=== PATIENT | male | born 1960 | race Caucasian/White ===

== ENCOUNTER 2018-12-24 10:53 | Inpatient (IN) | payer OTHER ==
[2018-12-24] MEDS ORDERED: methylPREDNISolone SOD SUCCI 125 MG/2 ML VIAL IV STA (11:25)
[2018-12-24] MEDS ORDERED: ALBUTEROL NEBULIZED 2.5 MG/3 ML INHALATION STA (11:25)
--- NOTE | 2018-12-24 11:32 | ED ---
General Adult HPI - General Chief complaint: Shortness of Breath Stated complaint: sciatic nerve problem & spitting up blood Time Seen by Provider: 12/24/18 11:10 Source: patient, RN notes reviewed Mode of arrival: ambulatory Limitations: no limitations - History of Present Illness Initial comments: Chief complaint and history of present illness this is a 58-year-old male here for complaint of coughing up blood. States he had fever or chills and disc omfort starting 3 days ago. The patient was at [facility] for opiate addiction treatment. The patient states he is no rebound through withdrawals prior to getting to [facility] over 5 days ago. Patient states he has COPD. He has had hemoptysis in the past when he had pneumonia. Patient complains of chronic sciatic pain - Related Data Home Medications Medication Instructions Recorded Confirmed Albuterol Sulfate [Albuterol 1 - 2 puff INHALATION RT-Q4H PRN 12/24/18 12/24/18 Sulfate Hfa] Beclomethasone Dip 80 Mcg/Puff 2 puff INHALATION RT-DAILY 12/24/18 12/24/18 [Qvar 80 mcg] Buprenorphine HCl/Naloxone HCl 1 film SUBLINGUAL TID 12/24/18 12/24/18 [Suboxone 8 mg-2 mg Sl Film] Gabapentin [Neurontin] 300 mg PO TID 12/24/18 12/24/18 Allergies Allergy/AdvReac Type Severity Reaction Status Date / Time morphine Allergy Itching Verified 12/24/18 12:23 Penicillins Allergy Dyspnea Verified 12/24/18 12:23 Review of Systems ROS Statement: Those systems with pertinent positive or pertinent negative responses have been documented in the HPI. Review of systems. No headache or visual acuity changes denies any chest pain but he does have frequent coughing complains of COPD type symptoms with shortness of breath. States he's noticed blood in the sputum. Complains of fever and chills 3 days ago. Denies nausea vomiting or abdominal pain. Has chronic sciatic pain. Denies any neuro deficits. All systems reviewed. Past medical problems significant for COPD, chronic back pain. The patient's past drug history includes heroin IV and 2017, crack cocaine, opiate abuse. Patient also is a heavy smoker. The patient's surgeries include right knee drained. Patient's family history significant for cancer of the lymph nodes and lung. The patient has ALLERGIES to morphine which causes itchiness. Penicillin causes his throat to close. Patient has had Toradol with moderate effect in the past. Denies any ALLERGIES or difficulties when receiving Renetta dol. Patient is a smoker strongly encouraged to stop for obvious reasons. Denies alcohol use. ROS Other: All systems not noted in ROS Statement are negative. Past Medical History Additional Past Medical History / Comment(s): herniated disks History of Any Multi-Drug Resistant Organisms: None Reported Past Surgical History: Orthopedic Surgery Past Psychological History: No Psychological Hx Reported Smoking Status: Current every day smoker Past Drug Use History: Opiates General Exam - General Exam Comments Initial Comments: General: The patient is awake and alert, has come the emergency room because of hemoptysis, short of breath, chronic sciatic pain. The patient's vital signs are temperature 98.2 pulse 86 respiratory rate 18 pulse ox 97% on room air blood pressure 98/42 Eye: Pupils are equal, round and reactive to light, extra-ocular movements are intact; there is normal conjunctiva bilaterally. No signs of icterus. Ears, nose, mouth and throat: There are moist mucous membranes and no oral lesions. Neck: The neck is supple, there is no tenderness, no anterior cervical lymphadenopathy. Cardiovascular: There is a regular rate and rhythm. No murmur, rub or gallop is appreciated. Respiratory: Bronchovesicular breath sounds, faint wheezing, crepitant rales right base. Gastrointestinal: Denies nausea vomiting or abdominal pain. Normal appetite Back: Chronic low back pain chronic sciatica. Musculoskeletal: Normal ROM, no tenderness, bilateral sciatic discomfort Neurological: CN II-XII intact, There are no obvious motor or sensory deficits. Coordination appears grossly intact. Speech is normal. Denying any neuro deficits chronic sciatic pain Skin: Skin is warm and dry and no rashes or lesions are noted. Psychiatric: Cooperative, denies depression Limitations: no limitations Course Vital Signs 12/24/18 12/24/18 12/24/18 11:02 11:51 12:57 Temperature 98.2 F Pulse Rate 66 72 Respiratory 18 20 Rate Blood Pressure 98/62 O2 Sat by Pulse 97 Oximetry 12/24/18 13:07 Temperature Pulse Rate 68 Respiratory Rate Blood Pressure O2 Sat by Pulse Oximetry EKG Findings - EKG Comments: EKG Findings:: EKG was done and reviewed at 1158 showing normal sinus rhythm with sinus arrhythmia. No acute ST elevation or ectopy no ischemic changes. Rate 81 OR interval is 128 QRS 74 QT [address] Emerson Medical Decision Making - Medical Decision Making Medical decision making; a 58-year-old male here because of coughing up some blood with a COPD. States he thinks he may have pneumonia. He is at [facility] for management of opiate addiction. The patient was in emergency room he requested pain medication he was given IV Toradol which she has had in the past. He also requested Suboxone which is not on formulary. The patient's labs show white count of 8.8 hemoglobin 13 hematocrit of 40 with an INR 0.9. His potassium is 5.1 BUN 28 creatinine 0.93 with a GFR of 90. Glucose 94. Chest x-ray was done and reviewed by radiologist his impression is there is no focal airspace opacity, pleural effusion or pneumothorax seen. Cardiac silhouette size within normal limits. Interstitial minutes increased. Prominent lung winds and flattening the hemidiaphragm suggesting underlying COPD. The osseous structures are intact. Impression in no acute cardiopulmon bruce process. Suspect interstitial lung disease. As read by Dr. Zafar The patient be admitted for COPD, hemoptysis. Patient be admitted to on-call hospitalist Dr. Maldonado - Lab Data Result diagrams: 12/24/18 11:48 12/24/18 11:48 Lab Results 12/24/18 12/24/18 12/24/18 Range/Units 11:48 11:48 11:48 WBC 8.8 (3.8-10.6) k/uL RBC 4.19 L (4.30-5.90) m/uL Hgb 13.1 (13.0-17.5) gm/dL Hct 40.0 (39.0-53.0) % MCV 95.5 (80.0-100.0) fL MCH 31.4 (25.0-35.0) pg MCHC 32.8 (31.0-37.0) g/dL RDW 12.0 (11.5-15.5) % Plt Count 265 (150-450) k/uL Neutrophils % 70 % Lymphocytes % 18 % Monocytes % 5 % Eosinophils % 4 % Basophils % 0 % Neutrophils # 6.2 (1.3-7.7) k/uL Lymphocytes # 1.6 (1.0-4.8) k/uL Monocytes # 0.4 (0-1.0) k/uL Eosinophils # 0.4 (0-0.7) k/uL Basophils # 0.0 (0-0.2) k/uL PT (9.0-12.0) sec INR (<1.2) APTT (22.0-30.0) sec Sodium 140 (137-145) mmol/L Potassium 5.1 (3.5-5.1) mmol/L Chloride 105 (98-107) mmol/L Carbon Dioxide 28 (22-30) mmol/L Anion Gap 7 mmol/L BUN 28 H (9-20) mg/dL Creatinine 0.93 (0.66-1.25) mg/dL Est GFR (CKD-EPI)AfAm >90 (>60 ml/min/1.73 sqM) Est GFR (CKD-EPI)NonAf 90 (>60 ml/min/1.73 sqM) Glucose 94 (74-99) mg/dL Calcium 9.2 (8.4-10.2) mg/dL Total Bilirubin 0.3 (0.2-1.3) mg/dL AST 28 (17-59) U/L ALT 24 (21-72) U/L Alkaline Phosphatase 54 (38-126) U/L Troponin I (0.000-0.034) ng/mL NT-Pro-B Natriuret Pep 138 pg/mL Total Protein 7.0 (6.3-8.2) g/dL Albumin 4.1 (3.5-5.0) g/dL 12/24/18 12/24/18 Range/Units 11:48 11:48 WBC (3.8-10.6) k/uL RBC (4.30-5.90) m/uL Hgb (13.0-17.5) gm/dL Hct (39.0-53.0) % MCV (80.0-100.0) fL MCH (25.0-35.0) pg MCHC (31.0-37.0) g/dL RDW (11.5-15.5) % Plt Count (150-450) k/uL Neutrophils % % Lymphocytes % % Monocytes % % Eosinophils % % Basophils % % Neutrophils # (1.3-7.7) k/uL Lymphocytes # (1.0-4.8) k/uL Monocytes # (0-1.0) k/uL Eosinophils # (0-0.7) k/uL Basophils # (0-0.2) k/uL PT 9.5 (9.0-12.0) sec INR 0.9 (<1.2) APTT 23.7 (22.0-30.0) sec Sodium (137-145) mmol/L Potassium (3.5-5.1) mmol/L Chloride (98-107) mmol/L Carbon Dioxide (22-30) mmol/L Anion Gap mmol/L BUN (9-20) mg/dL Creatinine (0.66-1.25) mg/dL Est GFR (CKD-EPI)AfAm (>60 ml/min/1.73 sqM) Est GFR (CKD-EPI)NonAf (>60 ml/min/1.73 sqM) Glucose (74-99) mg/dL Calcium (8.4-10.2) mg/dL Total Bilirubin (0.2-1.3) mg/dL AST (17-59) U/L ALT (21-72) U/L Alkaline Phosphatase (38-126) U/L Troponin I <0.012 (0.000-0.034) ng/mL NT-Pro-B Natriuret Pep pg/mL Total Protein (6.3-8.2) g/dL Albumin (3.5-5.0) g/dL Disposition Clinical Impression: COPD exacerbation, Cough with hemoptysis, Chronic pain Disposition: ADMITTED IP TO THIS HOSP Condition: Fair Is patient prescribed a controlled substance at d/c from ED?: No Referrals: None,Stated [Primary Care Provider] - 1-2 days
[2018-12-24] MEDS ORDERED: KETOROLAC 30 MG/ML 1 ML VIAL IVP STA (11:34)
[2018-12-24 12:05] LABS: Basophils % (A) 0 %; Eosinophils # (A) 0.4 k/uL (0-0.7); Eosinophils % (A) 4 %; HGB 13.1 gm/dL (13.0-17.5); Lymphocytes # (A) 1.6 k/uL (1.0-4.8); Lymphocytes % (A) 18 %; MCH 31.4 pg (25.0-35.0); MCHC 32.8 g/dL (31.0-37.0); MCV 95.5 fL (80.0-100.0); Mean Platelet Volume 6.8; Monocytes # (A) 0.4 k/uL (0-1.0); Monocytes % (A) 5 %; Neutrophils # (A) 6.2 k/uL (1.3-7.7); Neutrophils % (A) 70 %; Platelet Count 265 k/uL (150-450); RBC 4.19 m/uL (4.30-5.90); WBC 8.8 k/uL (3.8-10.6)
[2018-12-24 12:18] LABS: INR 0.9 (<1.2); Partial Thromboplastin Time 23.7 sec (22.0-30.0); Prothrombin Time 9.5 sec (9.0-12.0)
--- NOTE | 2018-12-24 12:21 | XR ---
EXAMINATION TYPE: XR chest 2V DATE OF EXAM: 12/24/2018 COMPARISON: NONE HISTORY: Difficulty breathing, hemostasis TECHNIQUE: Frontal and lateral views of the chest are obtained. FINDINGS: There is no focal air space opacity, pleural effusion, or pneumothorax seen. The cardiac silhouette size is within normal limits. Interstitium is increased. Prominent lung lines and flatteni ng the hemidiaphragms suggests underlying COPD. The osseous structures are intact. IMPRESSION: No acute cardiopulmonary process. Suspect interstitial lung disease.
[2018-12-24 12:24] LABS: ALT 24 U/L (21-72); AST 28 U/L (17-59); African American GFR (CKD) >90 (>60 ml/min/1.73 sqM); Albumin 4.1 g/dL (3.5-5.0); Alkaline Phosphatase 54 U/L (38-126); Anion Gap 7 mmol/L; Blood Urea Nitrogen 28 mg/dL (9-20); Calcium 9.2 mg/dL (8.4-10.2); Carbon Dioxide 28 mmol/L (22-30); Chloride 105 mmol/L (98-107); Glucose 94 mg/dL (74-99); Potassium 5.1 mmol/L (3.5-5.1); Sodium 140 mmol/L (137-145); Total Bilirubin 0.3 mg/dL (0.2-1.3)
[2018-12-24] MEDS ORDERED: NALOXONE 0.4 MG/ML 1 ML VIAL IV PRN (13:43)
[2018-12-24] MEDS ORDERED: IBUPROFEN 400 MG TAB PO PRN (13:43)
[2018-12-24] MEDS ORDERED: ALBUTEROL NEBULIZED 2.5 MG/3 ML INHALATION PRN (13:48)
[2018-12-24] MEDS: AZITHROMYCIN 500 MG in SODIUM CHLORIDE 0.9% 250 ML IVPB SCH (15:15)
--- NOTE | 2018-12-24 16:06 | P.CNPUL ---
History of Present Illness Consult date: 12/24/18 Reason for consult: dyspnea Chief complaint: Shortness of breath and hemoptysis History of present illness: 58-year-old male with extensive history of smoking and nicotine use [place] a patient from [place] has been in drug rehab program, he has been short of breath coughing and congested for last 2-3 week today he started coughing blood which was in the form of dark red started today denies any chest pain, he has previous episode of hemoptysis in the past his x-ray showing prominent interstitium otherwise unremarkable, he had fever or chills and discomfort starting 3 days ago. The patient was at [facility] for opiate addiction treatment. The patient states he is no rebound through withdrawals prior to getting to [facility] over 5 days ago. Patient states he has COPD. He has had hemoptysis in the past when he had pneumonia. Patient complains of chronic sciatic pain Review of Systems This complaining of chronic severe radicular leg pain in the right lower extremity All systems: negative Past Medical History Additional Past Medical History / Comment(s): herniated disks History of Any Multi-Drug Resistant Organisms: None Reported Past Surgical History: Orthopedic Surgery Past Psychological History: No Psychological Hx Reported Smoking Status: Current every day smoker Past Drug Use History: Opiates Medications and Allergies Home Medications Medication Instructions Recorded Confirmed Type Albuterol Sulfate [Albuterol 1 - 2 puff INHALATION RT-Q4H PRN 12/24/18 12/24/18 History Sulfate Hfa] Beclomethasone Dip 80 Mcg/Puff 2 puff INHALATION RT-DAILY 12/24/18 12/24/18 History [Qvar 80 mcg] Buprenorphine HCl/Naloxone HCl 1 film SUBLINGUAL TID 12/24/18 12/24/18 History [Suboxone 8 mg-2 mg Sl Film] Gabapentin [Neurontin] 300 mg PO TID 12/24/18 12/24/18 History Allergies Allergy/AdvReac Type Severity Reaction Status Date / Time morphine Allergy Itching Verified 12/24/18 12:23 Penicillins Allergy Dyspnea Verified 12/24/18 12:23 Physical Exam Vitals: Vital Signs Temp Pulse Resp BP Pulse Ox 12/24/18 15:24 72 18 133/80 97 12/24/18 13:53 64 18 111/68 95 12/24/18 13:07 68 12/24/18 12:57 72 06/28/19 11:51 20 12/24/18 11:02 98.2 F 66 18 98/62 97 Intake and Output 12/24/18 12/24/18 12/24/18 06:59 14:59 22:59 Other: Weight 77.111 kg - Constitutional General appearance: average body habitus, cooperative, disheveled, mild distress - EENT Eyes: EOMI, PERRLA, poor dentition, normal appearance ENT: hearing grossly normal, normal oropharynx Ears: bilateral: normal - Neck Neck: normal ROM Carotids: bilateral: upstroke normal Thyroid: bilateral: normal size - Respiratory Respiratory: bilateral: rhonchi, wheezing (An expiratory), negative: CTA, diminished, dullness, rales, prolonged expiration, prolonged inspiration - Cardiovascular Heart sounds: normal: S1, S2 - Gastrointestinal General gastrointestinal: normal bowel sounds, soft - Integumentary Integumentary: normal turgor - Neurologic Neurologic: CNII-XII intact - Musculoskeletal Musculoskeletal: gait normal, generalized weakness, strength equal bilaterally - Psychiatric Psychiatric: A&O x's 3, appropriate affect, intact judgment & insight Results - Laboratory Findings CBC and BMP: 12/24/18 11:48 12/24/18 11:48 PT/INR, D-dimer PT 9.5 sec (9.0-12.0) 12/24/18 11:48 INR 0.9 (<1.2) 12/24/18 11:48 Abnormal lab findings: Abnormal Labs 12/24/18 12/24/18 11:48 11:48 RBC 4.19 L BUN 28 H - Diagnostic Findings Chest x-ray: report reviewed, image reviewed (Findings as noted above) Assessment and Plan Assessment: Hemoptysis, suspect due to airway inflammation COPD exacerbation Tracheobronchitis Severe chronic leg pain History of opiate addiction Plan: Breathing treatments Antibiotics IV steroids Obtain computed tomography scan of the chest Further recommendations pending plan of care as per clinical response of patient Time with Patient: Greater than 30
[2018-12-24] MEDS: GABAPENTIN 300 MG CAP PO SCH ×2 (17:37→21:51)
[2018-12-24] MEDS: 0.9% NACL WITH KCL 20 MEQ/L 1,000 ML IV SCH (17:38)
[2018-12-24] MEDS: BUDESONIDE 0.5 MG/2 ML NEBU INHALATION SCH (20:45)
[2018-12-24] MEDS: IPRATROPIUM-ALBUTEROL 3 ML NEB INHALATION SCH (20:46)
[2018-12-24] MEDS: methylPREDNISolone SOD SUCCI 40 MG/ML 1 ML VIAL IV SCH (21:55)
--- NOTE | 2018-12-24 23:07 | CT ---
EXAMINATION TYPE: CT chest wo con DATE OF EXAM: 12/24/2018 COMPARISON: CXR 12/24/2018 HISTORY: Hemoptysis CT DLP: 368.1 mGycm. Automated Exposure Control for Dose Reduction was Utilized. TECHNIQUE: CT scan of the thorax is performed without IV contrast. FINDINGS: AIRWAYS: Unremarkable. LUNGS: There is hyperinflation and a coarse reticular pattern in the bilateral periphery of the upper , mid, and lower lung zones, associated with thickening of the intralobular septa, consistent with mi ld-moderately prominent interstitial lung disease. There is a 4 mm rounded groundglass nodule in the anterior segment right upper lobe on axial image 26 of 73. PLEURAL SPACES: Negative. MEDIASTINUM: Lack of IV contrast is noted to limit evaluation for mediastinal and especially hilar ad enopathy. There are no definitive greater than 1 cm hilar or mediastinal lymph nodes. No cardiomega ly or pericardial effusion is seen. However, prominent left and right coronary calcifications are not ed. OTHER: No additional significant abnormality is seen. IMPRESSION: 1) Interstitial lung disease. 2) 4 mm right upper lobe pulmonary nodule. 3) Prominent left and right coronary calcifications.
--- NOTE | 2018-12-24 23:42 | P.HPIM ---
History of Present Illness H&P Date: 12/24/18 Chief Complaint: Shortness of breath Patient is a 58-year-old male with a known history of COPD, history of substance abuse currently on Suboxone, chronic back pain and nicotine addiction came to ER with the complaints of coughing of blood. Patient noticed blood in sputum this morning. Streaks of blood mainly. Patient has been having worsening shortness of breath along with cough and sputum production for the past 2 days. Patient says that she did have fevers/chills at home. Currently patient was at [facility] for opiate addiction treatment. Patient says that his been having seen by and cough and is hurting his abdomen muscles and right sciatic nerve pain. Patient was wheezing with difficulty in breathing on admission. Chest x-ray showed no acute cardiopulmonary process. Suspect interstitial lung disease. Review of Systems Constitutional: Patient denies any fever or chills . No generalized weakness or weight loss. Abdomen: Patient denied nausea vomiting and diarrhea and abdominal pain. Cardiovascular: Patient denies any chest pain or short of breath no palpitations. Respiratory: Cough with sputum production and shortness of breath Neurologic: Patient denied any numbness or tingling headache. Musculoskeletal: Patient denies any complaints of joint swelling or deformity. Skin: Negative Psychiatric: Negative Endocrine: No heat or cold intolerance. No recent weight gain. Genitourinary: No dysuria or hematuria. All other 14 point ROS negative except the above Past Medical History Additional Past Medical History / Comment(s): herniated disks History of Any Multi-Drug Resistant Organisms: None Reported Past Surgical History: Orthopedic Surgery Past Psychological History: No Psychological Hx Reported Smoking Status: Current every day smoker Past Drug Use History: Opiates - Past Family History Father Family Medical History: Myocardial Infarction ([place]) Mother Additional Family Medical History / Comment(s): had colon resection/copd suspected PE ( from) Medications and Allergies Home Medications Medication Instructions Recorded Confirmed Type Albuterol Sulfate [Albuterol 1 - 2 puff INHALATION RT-Q4H PRN 12/24/18 12/24/18 History Sulfate Hfa] Beclomethasone Dip 80 Mcg/Puff 2 puff INHALATION RT-DAILY 12/24/18 12/24/18 History [Qvar 80 mcg] Buprenorphine HCl/Naloxone HCl 1 film SUBLINGUAL TID 12/24/18 12/24/18 History [Suboxone 8 mg-2 mg Sl Film] Gabapentin [Neurontin] 300 mg PO TID 12/24/18 12/24/18 History Allergies Allergy/AdvReac Type Severity Reaction Status Date / Time morphine Allergy Itching Verified 12/24/18 12:23 Penicillins Allergy Dyspnea Verified 12/24/18 12:23 Physical Exam Vitals: Vital Signs Temp Pulse Resp BP Pulse Ox 12/24/18 15:24 72 18 133/80 97 12/24/18 13:53 64 18 111/68 95 12/24/18 13:07 68 12/24/18 12:57 72 12/24/18 11:51 20 12/24/18 11:02 98.2 F 66 18 98/62 97 Intake and Output 12/24/18 12/24/18 12/24/18 06:59 14:59 22:59 Other: Weight 77.111 kg PHYSICAL EXAMINATION: Patient is lying in the bed comfortably, no acute distress, awake alert and oriented.. HEENT: Normocephalic. Neck is supple. Pupils reactive. Nostrils clear. Oral cavity is moist. Ears reveal no drainage. Neck reveals no JVD, carotid bruits, or thyromegaly. CHEST EXAMINATION: Trachea is central. Symmetrical expansion. bilateral diffuse wheezing and rhonchi. CARDIAC: Normal S1, S2 with no gallops. No murmurs ABDOMEN: Soft. Bowel sounds normal. No organomegaly. No abdominal bruits. Extremities: reveal no edema. No clubbing or cyanosis Neurologically awake, alert, oriented x3 with well-coordinated movements. No focal deficits noted Skin: No rash or skin lesions. Psychiatric: Coperative. Nonsuicidal Musculoskeletal: No joint swelling or deformity. Normal range of motion. Results CBC & Chem 7: 12/24/18 11:48 12/24/18 11:48 Labs: Abnormal Lab Results - Last 24 Hours (Table) 12/24/18 12/24/18 Range/Units 11:48 11:48 RBC 4.19 L (4.30-5.90) m/uL BUN 28 H (9-20) mg/dL Thrombosis Risk Factor Assmnt - DVT/VTE Prophylaxis DVT/VTE Prophylaxis: Pharmacologic Prophylaxis ordered Assessment and Plan Assessment: Hemoptysis likely due to acute bronchitis with mucosal inflammation Acute COPD exacerbation. Due to purulent tracheobronchitis. Nicotine addiction Opiate addiction currently on treatment with subaxone at [facility]. DVT prophylaxis Plan: Patient will be continued on DuoNeb's, methylprednisolone and oxygen therapy as needed. Continue with antibiotics in the form of azithromycin. Monitor H&H. Pulmonary was consulted and CT chest was ordered to evaluate for hemoptysis and possible pulmonary fibrosis. Continue to follow closely and further recommendations based on the clinical course. Smoking cessation has been counseled extensively. Time with Patient: Greater than 30
[2018-12-25] MEDS: KETOROLAC 30 MG/ML 1 ML VIAL IVP PRN ×4 (01:19→20:33)
[2018-12-25] MEDS: GABAPENTIN 300 MG CAP PO SCH ×3 (06:28→20:33)
[2018-12-25] MEDS: AZITHROMYCIN 500 MG in SODIUM CHLORIDE 0.9% 250 ML IVPB SCH (07:14)
[2018-12-25] MEDS: methylPREDNISolone SOD SUCCI 40 MG/ML 1 ML VIAL IV SCH ×2 (07:14→20:33)
[2018-12-25] MEDS: BUDESONIDE 0.5 MG/2 ML NEBU INHALATION SCH ×2 (07:35→20:27)
[2018-12-25] MEDS: IPRATROPIUM-ALBUTEROL 3 ML NEB INHALATION SCH ×4 (07:35→20:27)
[2018-12-25] MEDS: NICOTINE 14MG/24HR PATCH TRANSDERM SCH (07:57)
[2018-12-25 08:50] LABS: Basophils % (A) 0 %; Eosinophils % (A) 0 %; HCT 39.3 % (39.0-53.0); HGB 12.4 gm/dL (13.0-17.5); Lymphocytes # (A) 1.3 k/uL (1.0-4.8); Lymphocytes % (A) 8 %; MCH 30.6 pg (25.0-35.0); MCHC 31.6 g/dL (31.0-37.0); Mean Platelet Volume 7.1; Monocytes # (A) 0.6 k/uL (0-1.0); Monocytes % (A) 3 %; Neutrophils # (A) 15.2 k/uL (1.3-7.7); Neutrophils % (A) 88 %; Platelet Count 268 k/uL (150-450); RBC 4.05 m/uL (4.30-5.90); RDW 11.9 % (11.5-15.5); WBC 17.2 k/uL (3.8-10.6)
[2018-12-25] MEDS: ACETAMINOPHEN TAB 325 MG TAB PO PRN (10:10)
[2018-12-25] MEDS: FLUTICASONE 110 MCG INHALER INHALATION SCH ×2 (11:45→20:27)
[2018-12-25] MEDS: 0.9% NACL WITH KCL 20 MEQ/L 1,000 ML IV SCH (12:30)
[2018-12-25] MEDS: LORazepam 2 MG/ML INJ IV PRN ×2 (13:31→18:54)
[2018-12-25 14:28] VITALS: BMI 25.1
--- NOTE | 2018-12-25 21:01 | P.PN ---
Subjective Progress Note Date: 12/25/18 Principal diagnosis: Hemoptysis, COPD exacerbation, tracheobronchitis, chronic leg pain, history of opiate addiction, 12/25/2018, patient seen eval reexamined during the rounds has received Ativan due to agitated behavior patient is more calm and sleeping woke up remains composed I've discussed with RN there is no evidence of hemoptysis seen patient also denies hemoptysis now he is not coughing any phlegm however he still feel congested, computed tomography scan reviewed with finding as noted below 58-year-old male with extensive history of smoking and nicotine use [place] a patient from [place] has been in drug rehab program, he has been short of breath coughing and congested for last 2-3 week today he started coughing blood which was in the form of dark red started today denies any chest pain, he has previous episode of hemoptysis in the past his x-ray showing prominent interstitium otherwise unremarkable, he had fever or chills and discomfort starting 3 days ago. The patient was at [facility] for opiate addiction treatment. The patient states he is no rebound through withdrawals prior to getting to [facility] over 5 days ago. Patient states he has COPD. He has had hemoptysis in the past when he had pneumonia. Patient complains of chronic sciatic pain Objective - Vital Signs Vital signs: Vital Signs Temp 97.9 F 12/25/18 12:31 Pulse 66 12/25/18 20:41 Resp 16 12/25/18 12:31 BP 111/67 12/25/18 12:31 Pulse Ox 96 12/25/18 16:00 Intake & Output 12/25/18 12/25/18 12/26/18 06:59 18:59 06:59 Intake Total 1250 540 Output Total 0 Balance 1250 540 Weight 77.111 kg Intake: Oral 1250 540 Output: Stool 0 Other: Voiding Method Toilet # Voids 1 2 - Exam - Constitutional General appearance: average body habitus, cooperative, disheveled, mild distress - EENT Eyes: EOMI, PERRLA, poor dentition, normal appearance ENT: hearing grossly normal, normal oropharynx Ears: bilateral: normal - Neck Neck: normal ROM Carotids: bilateral: upstroke normal Thyroid: bilateral: normal size - Respiratory Respiratory: bilateral: rhonchi, wheezing (An expiratory), negative: CTA, diminished, dullness, rales, prolonged expiration, prolonged inspiration - Cardiovascular Heart sounds: normal: S1, S2 - Gastrointestinal General gastrointestinal: normal bowel sounds, soft - Integumentary Integumentary: normal turgor - Neurologic Neurologic: CNII-XII intact - Musculoskeletal Musculoskeletal: gait normal, generalized weakness, strength equal bilaterally - Psychiatric Psychiatric: A&O x's 3, appropriate affect, intact judgment & insight - Labs CBC & Chem 7: 12/25/18 08:08 12/24/18 11:48 Labs: Abnormal Lab Results - Last 24 Hours (Table) 12/25/18 Range/Units 08:08 WBC 17.2 H (3.8-10.6) k/uL RBC 4.05 L (4.30-5.90) m/uL Hgb 12.4 L (13.0-17.5) gm/dL Neutrophils # 15.2 H (1.3-7.7) k/uL Microbiology - Last 24 Hours (Table) 12/24/18 11:48 Blood Culture - Preliminary Blood No Growth after 24 hours Assessment and Plan Assessment: Hemoptysis, suspect due to airway inflammation, improved now Right upper lobe 4 millimeter pulmonary nodule Interstitial lung disease overall mild likely IPF as it is involving the periphery of the lung with some early reticulation COPD exacerbation Tracheobronchitis Severe chronic leg pain History of opiate addiction Plan: Breathing treatments Antibiotics IV steroids Obtain computed tomography scan of the chest Further recommendations pending plan of care as per clinical response of patient Evaluation of lung nodule and interstitial lung disease as outpatient Time with Patient: Greater than 30
[2018-12-26] MEDS: KETOROLAC 30 MG/ML 1 ML VIAL IVP PRN ×3 (03:43→22:35)
[2018-12-26] MEDS: LORazepam 2 MG/ML INJ IV PRN ×3 (03:49→19:07)
[2018-12-26] MEDS: 0.9% NACL WITH KCL 20 MEQ/L 1,000 ML IV SCH (05:00)
[2018-12-26] MEDS: AZITHROMYCIN 500 MG in SODIUM CHLORIDE 0.9% 250 ML IVPB SCH (07:47)
[2018-12-26] MEDS: NICOTINE 14MG/24HR PATCH TRANSDERM SCH (07:47)
[2018-12-26] MEDS: GABAPENTIN 300 MG CAP PO SCH ×3 (07:47→21:33)
[2018-12-26] MEDS: methylPREDNISolone SOD SUCCI 40 MG/ML 1 ML VIAL IV SCH ×2 (07:47→21:34)
[2018-12-26] MEDS: FLUTICASONE 110 MCG INHALER INHALATION SCH ×2 (09:03→20:53)
[2018-12-26] MEDS: IPRATROPIUM-ALBUTEROL 3 ML NEB INHALATION SCH ×4 (09:03→20:48)
[2018-12-26] MEDS: BUDESONIDE 0.5 MG/2 ML NEBU INHALATION SCH ×2 (09:21→20:48)
--- NOTE | 2018-12-26 15:10 | P.PN ---
Subjective Progress Note Date: 12/26/18 Principal diagnosis: Hemoptysis, COPD exacerbation, tracheobronchitis, chronic leg pain, history of opiate addiction, 12/26/2018, patient seen eval reexamined during the rounds still have ongoing cough congestion shortness of breath but severity has improved patient claims that he has coughed some blood, however RN not able to confirm it I have also patient to save if hemoptysis recurs again and show it to RN, in the meantime continue breathing treatments steroids and antibiotics follow clinical course closely 12/25/2018, patient seen eval reexamined during the rounds has received Ativan due to agitated behavior patient is more calm and sleeping woke up remains composed I've discussed with RN there is no evidence of hemoptysis seen patient also denies hemoptysis now he is not coughing any phlegm however he still feel congested, computed tomography scan reviewed with finding as noted below 58-year-old male with extensive history of smoking and nicotine use [place] a patient from [place] has been in drug rehab program, he has been short of breath coughing and congested for last 2-3 week today he started coughing blood which was in the form of dark red started today denies any chest pain, he has previous episode of hemoptysis in the past his x-ray showing prominent interstitium otherwise unremarkable, he had fever or chills and discomfort starting 3 days ago. The patient was at [facility] for opiate addiction treatment. The patient states he is no rebound through withdrawals prior to getting to [facility] over 5 days ago. Patient states he has COPD. He has had hemoptysis in the past when he had pneumonia. Patient complains of chronic sciatic pain Objective - Vital Signs Vital signs: Vital Signs Temp 98.0 F 12/26/18 13:18 Pulse 66 12/26/18 13:58 Resp 16 12/26/18 13:18 BP 118/60 12/26/18 13:18 Pulse Ox 96 12/26/18 13:18 Intake & Output 12/25/18 12/26/18 12/26/18 18:59 06:59 18:59 Intake Total 540 750 Output Total 0 Balance 540 750 Weight 77.111 kg Intake: Oral 540 750 Output: Stool 0 Other: Voiding Method Toilet Toilet Toilet # Voids 2 1 3 - Exam - Constitutional General appearance: average body habitus, cooperative, disheveled, mild distress - EENT Eyes: EOMI, PERRLA, poor dentition, normal appearance ENT: hearing grossly normal, normal oropharynx Ears: bilateral: normal - Neck Neck: normal ROM Carotids: bilateral: upstroke normal Thyroid: bilateral: normal size - Respiratory Respiratory: bilateral: rhonchi, wheezing (An expiratory), negative: CTA, diminished, dullness, rales, prolonged expiration, prolonged inspiration - Cardiovascular Heart sounds: normal: S1, S2 - Gastrointestinal General gastrointestinal: normal bowel sounds, soft - Integumentary Integumentary: normal turgor - Neurologic Neurologic: CNII-XII intact - Musculoskeletal Musculoskeletal: gait normal, generalized weakness, strength equal bilaterally - Psychiatric Psychiatric: A&O x's 3, appropriate affect, intact judgment & insight - Labs CBC & Chem 7: 12/25/18 08:08 12/24/18 11:48 Labs: Microbiology - Last 24 Hours (Table) 12/24/18 11:48 Blood Culture - Preliminary Blood No Growth after 48 hours Assessment and Plan Assessment: Hemoptysis, suspect due to airway inflammation, improved now Right upper lobe 4 millimeter pulmonary nodule Interstitial lung disease overall mild likely IPF as it is involving the periphery of the lung with some early reticulation COPD exacerbation Tracheobronchitis Severe chronic leg pain History of opiate addiction Plan: Breathing treatments Antibiotics IV steroids Reviewed computed tomography scan of the chest Further recommendations pending plan of care as per clinical response of patient Evaluation of lung nodule and interstitial lung disease as outpatient Time with Patient: Greater than 30
[2018-12-26 16:57] LABS: Glucose,Whole Blood 225 mg/dL (75-99)
[2018-12-26] MEDS: INSULIN ASPART (NovoLOG) 100 UNIT/ML VIAL SQ SCH ×2 (17:29→21:34)
[2018-12-26] MEDS: ACETAMINOPHEN TAB 325 MG TAB PO PRN (19:51)
[2018-12-26 21:18] LABS: Glucose,Whole Blood 182 mg/dL (75-99)
[2018-12-26 23:11] VITALS: RESP 18
--- NOTE | 2018-12-27 00:35 | P.PN ---
Subjective Progress Note Date: 12/25/18 Principal diagnosis: Acute COPD exacerbation Subaxone withdrawal symptoms Patient is a 58-year-old male with a known history of COPD, history of substance abuse currently on Suboxone, chronic back pain and nicotine addiction came to ER with the complaints of coughing of blood. Patient noticed blood in sputum this morning. Streaks of blood mainly. Patient has been having worsening shortness of breath along with cough and sputum production for the past 2 days. Patient says that she did have fevers/chills at home. Currently patient was at [facility] for opiate addiction treatment. Patient says that his been having seen by and cough and is hurting his abdomen muscles and right sciatic nerve pain. Patient was wheezing with difficulty in breathing on admission. Chest x-ray showed no acute cardiopulmonary process. Suspect interstitial lung disease. 12 25 2017 Patient is lying in the bed comfortably. Patient is drowsy. Still wheezing. No fever no chills. CT chest showed interstitial lung disease. 4mm right upper lobe lung nodule . Prominent right and left coronary calcifications No chest pain or worsening shortness of breath. No fever no chills. Current medications reviewed. Objective - Vital Signs Vital signs: Vital Signs Temp 97.9 F 12/25/18 12:31 Pulse 66 12/25/18 20:41 Resp 16 12/25/18 12:31 BP 111/67 12/25/18 12:31 Pulse Ox 96 12/25/18 16:00 Intake & Output 12/25/18 12/25/18 12/26/18 06:59 18:59 06:59 Intake Total 1250 540 Output Total 0 0 Balance 1250 540 0 Weight 77.111 kg Intake: Oral 1250 540 Output: Stool 0 0 Other: Voiding Method Toilet Toilet # Voids 1 2 - Exam PHYSICAL EXAMINATION: Patient is lying in the bed comfortably, no acute distress, awake alert and oriented. Patient is drowsy.. HEENT: Normocephalic. Neck is supple. Pupils reactive. Nostrils clear. Oral cavity is moist. Ears reveal no drainage. Neck reveals no JVD, carotid bruits, or thyromegaly. CHEST EXAMINATION: Trachea is central. Symmetrical expansion. Diffuse wheezing and scattered rhonchi.. CARDIAC: Normal S1, S2 with no gallops. No murmurs ABDOMEN: Soft. Bowel sounds normal. No organomegaly. No abdominal bruits. Extremities: reveal no edema. No clubbing or cyanosis Neurologically awake, alert, oriented x3 with well-coordinated movements. No focal deficits noted Skin: No rash or skin lesions. Psychiatric: Coperative. Nonsuicidal Musculoskeletal: No joint swelling or deformity. Normal range of motion. - Labs CBC & Chem 7: 12/25/18 08:08 12/24/18 11:48 Labs: Abnormal Lab Results - Last 24 Hours (Table) 12/25/18 Range/Units 08:08 WBC 17.2 H (3.8-10.6) k/uL RBC 4.05 L (4.30-5.90) m/uL Hgb 12.4 L (13.0-17.5) gm/dL Neutrophils # 15.2 H (1.3-7.7) k/uL Microbiology - Last 24 Hours (Table) 12/24/18 11:48 Blood Culture - Preliminary Blood No Growth after 24 hours Assessment and Plan Assessment: Hemoptysis likely due to acute bronchitis with mucosal inflammation. No further episodes. Acute COPD exacerbation. Due to purulent tracheobronchitis. Nicotine addiction Opiate addiction currently on treatment with subaxone at [facility]. DVT prophylaxis Plan: Patient will be continued on DuoNeb's, methylprednisolone and oxygen therapy as needed. Continue with antibiotics in the form of azithromycin. Monitor H&H. Pulmonary was consulted and CT chest was ordered to evaluate for hemoptysis and possible pulmonary fibrosis. Continue to follow closely and further recommenda tions based on the clinical course. Smoking cessation has been counseled extensively.
--- NOTE | 2018-12-27 00:38 | P.PN ---
Subjective Progress Note Date: 12/26/18 Principal diagnosis: Acute COPD exacerbation Subaxone withdrawal symptoms Patient is a 58-year-old male with a known history of COPD, history of substance abuse currently on Suboxone, chronic back pain and nicotine addiction came to ER with the complaints of coughing of blood. Patient noticed blood in sputum this morning. Streaks of blood mainly. Patient has been having worsening shortness of breath along with cough and sputum production for the past 2 days. Patient says that she did have fevers/chills at home. Currently patient was at [facility] for opiate addiction treatment. Patient says that his been having seen by and cough and is hurting his abdomen muscles and right sciatic nerve pain. Patient was wheezing with difficulty in breathing on admission. Chest x-ray showed no acute cardiopulmonary process. Suspect interstitial lung disease. 12 25 2017 Patient is lying in the bed comfortably. Patient is drowsy. Still wheezing. No fever no chills. CT chest showed interstitial lung disease. 4mm right upper lobe lung nodule . Prominent right and left coronary calcifications No chest pain or worsening shortness of breath. No fever no chills. 12/26/2018 Patient is to let cough and shortness of breath and wheezing but improving slowly. Otherwise being continued on IV steroids and breathing treatments. No fever no chills. No other acute overnight issues. Current medications reviewed. Objective - Vital Signs Vital signs: Vital Signs Temp 98.0 F 12/26/18 13:18 Pulse 66 12/26/18 13:58 Resp 16 12/26/18 13:18 BP 118/60 12/26/18 13:18 Pulse Ox 96 12/26/18 13:18 Intake & Output 12/25/18 12/26/18 12/26/18 18:59 06:59 18:59 Intake Total 540 750 Output Total 0 Balance 540 750 Weight 77.111 kg Intake: Oral 540 750 Output: Stool 0 Other: Voiding Method Toilet Toilet Toilet # Voids 2 1 3 - Exam PHYSICAL EXAMINATION: Patient is lying in the bed comfortably, no acute distress, awake alert and oriented. Patient is drowsy.. HEENT: Normocephalic. Neck is supple. Pupils reactive. Nostrils clear. Oral cavity is moist. Ears reveal no drainage. Neck reveals no JVD, carotid bruits, or thyromegaly. CHEST EXAMINATION: Trachea is central. Symmetrical expansion. Diffuse wheezing and scattered rhonchi.. CARDIAC: Normal S1, S2 with no gallops. No murmurs ABDOMEN: Soft. Bowel sounds normal. No organomegaly. No abdominal bruits. Extremities: reveal no edema. No clubbing or cyanosis Neurologically awake, alert, oriented x3 with well-coordinated movements. No focal deficits noted Skin: No rash or skin lesions. Psychiatric: Coperative. Nonsuicidal Musculoskeletal: No joint swelling or deformity. Normal range of motion. - Labs CBC & Chem 7: 12/25/18 08:08 12/24/18 11:48 Labs: Microbiology - Last 24 Hours (Table) 12/24/18 11:48 Blood Culture - Preliminary Blood No Growth after 48 hours Assessment and Plan Assessment: Hemoptysis likely due to acute bronchitis with mucosal inflammation. No further episodes. Acute COPD exacerbation. Due to purulent tracheobronchitis. 4 mm right upper lobe pulmonary nodule. Nicotine addiction Opiate addiction currently on treatment with subaxone at [facility]. Monitor for withdrawal symptoms. DVT prophylaxis Plan: Patient will be continued on DuoNeb's, methylprednisolone and oxygen therapy as needed. Continue with antibiotics in the form of azithromycin. Monitor H&H. Pulmonary was consulted and CT chest was ordered to evaluate for hemoptysis and possible pulmonary fibrosis. Continue to follow closely and further recommendations based on the clinical course. Smoking cessation has been counseled extensively. Time with Patient: Greater than 30
[2018-12-27] MEDS: LORazepam 2 MG/ML INJ IV PRN ×2 (01:27→07:46)
[2018-12-27] MEDS: 0.9% NACL WITH KCL 20 MEQ/L 1,000 ML IV SCH (02:52)
[2018-12-27] MEDS: ACETAMINOPHEN TAB 325 MG TAB PO PRN (05:39)
[2018-12-27 06:28] VITALS: BP 139/73; TEMP 98.1
[2018-12-27] MEDS: FLUTICASONE 110 MCG INHALER INHALATION SCH (07:14)
[2018-12-27] MEDS: IPRATROPIUM-ALBUTEROL 3 ML NEB INHALATION SCH ×2 (07:14→11:06)
[2018-12-27] MEDS: BUDESONIDE 0.5 MG/2 ML NEBU INHALATION SCH (07:14)
[2018-12-27 07:33] LABS: Glucose,Whole Blood 123 mg/dL (75-99)
[2018-12-27] MEDS: INSULIN ASPART (NovoLOG) 100 UNIT/ML VIAL SQ SCH ×2 (07:40→13:00)
[2018-12-27] MEDS: GABAPENTIN 300 MG CAP PO SCH (07:42)
[2018-12-27] MEDS: methylPREDNISolone SOD SUCCI 40 MG/ML 1 ML VIAL IV SCH (07:42)
[2018-12-27] MEDS: NICOTINE 14MG/24HR PATCH TRANSDERM SCH (07:42)
[2018-12-27] MEDS: KETOROLAC 30 MG/ML 1 ML VIAL IVP PRN ×2 (07:46→12:57)
[2018-12-27] MEDS ORDERED: AZITHROMYCIN 500 MG TAB PO SCH (09:00)
[2018-12-27 11:09] VITALS: PULSE 68
[2018-12-27 11:10] LABS: Basophils % (A) 0 %; Eosinophils % (A) 0 %; HCT 36.5 % (39.0-53.0); HGB 11.7 gm/dL (13.0-17.5); Lymphocytes # (A) 1.1 k/uL (1.0-4.8); Lymphocytes % (A) 7 %; MCH 31.1 pg (25.0-35.0); Mean Platelet Volume 7.5; Monocytes # (A) 0.5 k/uL (0-1.0); Monocytes % (A) 3 %; Neutrophils % (A) 89 %; Platelet Count 223 k/uL (150-450); RBC 3.76 m/uL (4.30-5.90); RDW 12.8 % (11.5-15.5); WBC 15.8 k/uL (3.8-10.6)
[2018-12-27 11:27] LABS: African American GFR (CKD) >90 (>60 ml/min/1.73 sqM); Anion Gap 6 mmol/L; Blood Urea Nitrogen 25 mg/dL (9-20); Calcium 8.9 mg/dL (8.4-10.2); Carbon Dioxide 28 mmol/L (22-30); Chloride 107 mmol/L (98-107); Glucose 142 mg/dL (74-99); Potassium 4.5 mmol/L (3.5-5.1); Sodium 141 mmol/L (137-145)
[2018-12-27 11:54] LABS: Glucose,Whole Blood 180 mg/dL (75-99)
--- NOTE | 2018-12-27 14:02 | XR ---
EXAMINATION TYPE: XR lumbosacral spine min 4V DATE OF EXAM: 12/27/2018 CLINICAL HISTORY: Chronic back pain TECHNIQUE: Frontal, lateral, and oblique images of the lumbar spine are obtained. COMPARISON: None FINDINGS: There are 5 lumbar type vertebral bodies identified. Very subtle dextro scoliosis of the l umbar spine is seen that may be positional in nature. The lumbar spine shows satisfactory alignment without evidence of acute fracture or dislocation. Multilevel facet arthropathy and small anterior os teophytes are present. Vertebral body heights and disk space heights are within normal limits. The oblique images demonstrate mild neural foraminal narrowing at L3-L4 bilaterally. The overlying soft tissue appears unremarkable. Atherosclerosis of the abdominal aorta is mild. IMPRESSION: 1. No acute fracture or malalignment is seen in the lumbar spine. 2. Mild multilevel degenerative disc disease of lumbar spine creating mild neural foraminal narrowing at L3-L4 bilaterally.
--- NOTE | 2018-12-29 07:41 | DS ---
DISCHARGE SUMMARY FINAL DIAGNOSES: 1. Hemoptysis, likely due to acute bronchitis and mucosal inflammation. 2. Chronic obstructive pulmonary disease acute exacerbation with acute purulent tracheobronchitis. 3. A 4 mm right upper lobe pulmonary nodule. 4. History of nicotine dependence. 5. History of opiate addiction, currently on treatment with Suboxone with [facility]. DISCHARGE DISPOSITION: The patient will be discharged in stable condition with guarded prognosis. HISTORY OF PRESENT ILLNESS: This 58-year-old gentleman with a past medical history of multiple medical problems admitted with hemoptysis, COPD acute exacerbation. Patient is apparently in [facility] at this time. The patient was closely monitored. Symptomatic treatment, improved significantly. Antibiotics were given. The hemoglobin is 11.7. On exam, vitals are stable. CARDIOVASCULAR: S1, S2 muffled. RESPIRATORY: A few scattered rhonchi. DISCHARGE ADVICE: 1. Diet is cardiac. 2. Activity limited until followup. 3. Follow up with primary physician in 2 to 3 days. 4. Follow up with Dr. Hartley as recommended. MEDICATIONS ARE: 1. Albuterol 1 to 2 puffs q.4 p.r.n. 2. Neurontin 300 mg p.o. t.i.d. 3. Qvar 80 2 puffs daily. 4. Suboxone as before. 5. DuoNeb q.i.d. and p.r.n. 6. Habitrol 14 daily. 7. Motrin 400 mg q.6 p.r.n. 8. Prednisone 40 mg daily for 3 days 30 for 3 days, 20 for 3 days 10 for 3 days. 9. Tylenol p.r.n. 10.Zithromax 500 mg daily for 5 days. Once again, the patient will be discharged in stable condition with guarded prognosis. MMODL / IJN: [id number] / MTDD
== END 2018-12-27 14:42 | disposition home or self-care (01) | DRG 191 ==
LOC: EC 10:53 → 4MS4W 13:43 → INTOOBSV 13:43 → 4MS4W 16:03 → OBSVTOIN 12-25 15:56
PROVIDERS: ADMIT Internal Medicine; ATTEND Internal Medicine
DX: J44.1 Chronic obstructive pulmonary disease with (acute) exacerbation (principal); J84.9 Interstitial pulmonary disease, unspecified; F11.23 Opioid dependence with withdrawal; J44.0 Chronic obstructive pulmonary disease with (acute) lower respiratory infection; J20.9 Acute bronchitis, unspecified; M54.31 Sciatica, right side; Z71.6 Tobacco abuse counseling; F17.210 Nicotine dependence, cigarettes, uncomplicated; G89.29 Other chronic pain; I25.10 Atherosclerotic heart disease of native coronary artery without angina pectoris; Z79.899 Other long term (current) drug therapy; Z82.49 Family history of ischemic heart disease and other diseases of the circulatory system; Z82.5 Family history of asthma and other chronic lower respiratory diseases; Z88.5 Allergy status to narcotic agent; Z88.0 Allergy status to penicillin; R91.1 Solitary pulmonary nodule; Z87.01 Personal history of pneumonia (recurrent)
CPT/HCPCS: 36415; 71046; 71250; 72110; 80048; 80053; 83880; 84484; 85025; 85610; 85730; 87040; 93005; 94640; 96365; 96375; 99285

== ENCOUNTER 2023-04-22 12:40 | Observation (INO) | payer MEDICARE, OTHER ==
--- NOTE | 2023-04-22 13:44 | ED ---
Chest Pain HPI - General Chief Complaint: Chest Pain Stated Complaint: chest pain Time Seen by Provider: 04/22/23 12:55 Source: patient Mode of arrival: EMS Limitations: no limitations - History of Present Illness Initial Comments: 63-year-old male with past medical history of coronary artery disease, COPD who presents to the emergency department from [place]. States that he has a history of artery disease with 2 stents which were placed approximately 4 years ago. He does not follow with a civil engineering technician any longer. Stents were placed at [facility]. Reports that he will occasionally get chest pain for which he has nitro to take for his chest pain. For the past 3 days he has been residing at [place]. States he's had two episodes of significant and intense chest pain. 2 nights ago the patient couldn't sleep because of how severe it was. He was given some nitro which he stated alleviated his symptoms. The patient began having symptoms again today when he stated that he had exerted himself and walked down the hallway. He went to the nurse's office and they called for transfer to the hospital. Patient arrives and is actively having symptoms. Describes it as a pressure sensation over the left side of his chest. Has associated shortness of breath. No ripping or tearing tissue his back. No abdominal pain. Denies any numbness, tingling or weakness in his extremities. Patient is on Brilinta - admits to occasional missed doses. No other alleviating, precipitating or modifying factors - Related Data Home Medications Medication Instructions Recorded Confirmed Buprenorphine HCl/Naloxone HCl 1 film SUBLINGUAL DAILY 12/24/18 04/22/23 [Suboxone 8 mg-2 mg Sl Film] Budesonide/Formoterol Fumarate 1 puff INHALATION RT-BID 04/22/23 04/22/23 [Symbicort 80-4.5 Mcg Inhaler] Divalproex Sodium [Depakote] 500 mg PO BID 04/22/23 04/22/23 Isosorbide Mononitrate ER [Imdur] 30 mg PO DAILY 04/22/23 04/22/23 Mag Hydrox/Aluminum Hyd/Simeth 30 ml PO Q4H PRN 04/22/23 04/22/23 [Mylanta Maximum Strength Liq] Metoprolol Tartrate [Lopressor] 25 mg PO BID 04/22/23 04/22/23 Nitroglycerin Sl Tabs [Nitrostat] 0.4 mg SL Q5M PRN 04/22/23 04/22/23 Ticagrelor [Brilinta] 90 mg PO BID 04/22/23 04/22/23 buPROPion XL [Wellbutrin XL] 150 mg PO DAILY 04/22/23 04/22/23 traZODone HCL 150 mg PO HS 04/22/23 04/22/23 Allergies Allergy/AdvReac Type Severity Reaction Status Date / Time morphine Allergy Itching Verified 12/24/18 12:23 Penicillins Allergy Anaphylaxis Verified 04/22/23 13:47 diphenhydramine AdvReac "Passes Verified 04/22/23 13:48 [From Benadryl] Out" Review of Systems ROS Statement: Those systems with pertinent positive or pertinent negative responses have been documented in the HPI. ROS Other: All systems not noted in ROS Statement are negative. Past Medical History Past Medical History: COPD, GI Bleed, Liver Disease, Respiratory Disorder Additional Past Medical History / Comment(s): herniated disks History of Any Multi-Drug Resistant Organisms: None Reported Past Surgical History: Orthopedic Surgery Additional Past Surgical History / Comment(s): r knee surgery. had staph infection. Past Anesthesia/Blood Transfusion Reactions: No Reported Reaction Past Psychological History: No Psychological Hx Reported Past Alcohol Use History: None Reported Past Drug Use History: Cocaine, Opiates - Past Family History Father Family Medical History: Myocardial Infarction ([place]) Mother Additional Family Medical History / Comment(s): had colon resection/copd suspected PE ( from) General Exam Limitations: no limitations General appearance: alert, in no apparent distress Head exam: Present: atraumatic, normocephalic, normal inspection Eye exam: Present: normal appearance, PERRL, EOMI. Absent: scleral icterus, conjunctival injection, periorbital swelling ENT exam: Present: normal exam, mucous membranes moist Neck exam: Present: normal inspection. Absent: tenderness, meningismus, lymphadenopathy Respiratory exam: Present: normal lung sounds bilaterally. Absent: respiratory distress, wheezes, rales, rhonchi, stridor Cardiovascular Exam: Present: regular rate, normal rhythm, normal heart sounds. Absent: systolic murmur, diastolic murmur, rubs, gallop, clicks GI/Abdominal exam: Present: soft, normal bowel sounds. Absent: distended, tenderness, guarding, rebound, rigid Extremities exam: Present: normal inspection, full ROM, normal capillary refill. Absent: tenderness, pedal edema, joint swelling, calf tenderness Back exam: Present: normal inspection Neurological exam: Present: alert, oriented X3, CN II-XII intact Psychiatric exam: Present: normal affect, normal mood Skin exam: Present: warm, dry, intact, normal color. Absent: rash Course Vital Signs 04/22/23 04/22/23 04/22/23 12:52 14:46 15:00 Temperature 97.9 F 98.0 F Pulse Rate 60 54 L 58 L Respiratory 16 8 L 23 Rate Blood Pressure 86/51 103/60 107/64 O2 Sat by Pulse 97 97 97 Oximetry Chest Pain MDM - MDM Was pt. sent in by a medical professional or institution (, PA, STEELWORKER, urgent care, hospital, or assisted...) When possible be specific @ -[place] Did you speak to anyone other than the patient for history (EMS, parent, family, police, friend...)? What history was obtained from this source @ -EMS Did you review nursing and triage notes (agree or disagree)? Why? @ -I reviewed and agree with nursing and triage notes Were old charts reviewed (outside hosp., previous admission, EMS record, old EKG, old radiological studies, urgent care reports/EKG's, assisted records)? Report findings @ -No old charts were reviewed Differential Diagnosis (chest pain, altered mental status, abdominal pain women, abdominal pain men, vaginal bleeding, weakness, fever, dyspnea, syncope, headache, dizziness, GI bleed, back pain, seizure, CVA, palpatations, mental health, musculoskeletal)? @ -Differential Chest Pain: Stable Angina, Unstable Angina, STEMI, NSTEMI Aortic Dissection, Pneumothorax, Musculoskeletal, Esophageal Spasm GERD, Cholecystitis, Pancreatitis, Zoster, this is not meant to be an all-inclusive list. EKG interpreted by me (3pts min.). @ -Yes and demonstrates sinus bradycardia with a rate of 58. UT interval 144. QRS 91. QTC of 386. No acute ST segment elevations or depressions X-rays interpreted by me (1pt min.). @ -Yes and demonstrates no acute process CT interpreted by me (1pt min.). @ -None done U/S interpreted by me (1pt. min.). @ -None done What testing was considered but not performed or refused? (CT, X-rays, U/S, labs)? Why? @ -None What meds were considered but not given or refused? Why? @ -None Did you discuss the management of the patient with other professionals (professionals i.e. Dr., PA, STEELWORKER, lab, RT, psych nurse, social group worker, lock up worker, teacher, senior escrow officer, caser in)? Give summary @ -Spoke with Dr. Drake who agreed to admit the patient Was smoking cessation discussed for >3mins.? @ -No Was critical care preformed (if so, how long)? @ -No Were there social determinants of health that impacted care today? How? (Homelessness, low income, unemployed, alcoholism, drug addiction, transportation, low edu. Level, literacy, decrease access to med. care, prison, rehab)? @ -The patient currently in rehab Was there de-escalation of care discussed even if they declined (Discuss DNR or withdrawal of care, Hospice)? DNR status @ -No What co-morbidities impacted this encounter? (DM, HTN, Smoking, COPD, CAD, Cancer, CVA, ARF, Chemo, Hep., AIDS, mental health diagnosis, sleep apnea, morbid obesity)? @ -Atherosclerotic coronary artery disease Was patient admitted / discharged? Hospital course, mention meds given and route, prescriptions, significant lab abnormalities, going to OR and other pertinent info. @ -Upon arrival patient was placed in room 21. A thorough history and physical exam was performed. 12-lead EKG is obtained. Laboratory studies are conducted. Chest x-rays performed. It results are discussed the patient. He will be admitted for serial troponins and cardiology consultation. Patient was admitted in stable condition Undiagnosed new problem with uncertain prognosis? @ -Yes Drug Therapy requiring intensive monitoring for toxicity (Heparin, Nitro, Insulin, Cardizem)? @ -No Were any procedures done? @ -No Diagnosis/symptom? @ -Acute chest pain, history of atherosclerotic coronary artery disease Acute, or Chronic, or Acute on Chronic? @ -Acute on chronic Uncomplicated (without systemic symptoms) or Complicated (systemic symptoms)? @ -Complicated Side effects of treatment? @ -No Exacerbation, Progression, or Severe Exacerbation? @ -Yes Poses a threat to life or bodily function? How? (Chest pain, [place], [place], pneumonia, PE, COPD, DKA, ARF, appy, cholecystitis, CVA, Diverticulitis, Homicidal, Suicidal, threat to staff... and all critical care pts) @ -Yes, patient had active chest pain Disposition Clinical Impression: Chest pain Disposition: ADMITTED IP TO THIS [facility] Condition: Stable Is patient prescribed a controlled substance at d/c from ED?: No Time of Disposition: 15:30 Decision to Admit Reason: Admit from EC Decision Date: 04/22/23 Decision Time: 15:30
[2023-04-22 13:45] LABS: Basophils # (A) 0.1 k/uL (0-0.2); Basophils % (A) 1 %; Eosinophils # (A) 0.5 k/uL (0-0.7); Eosinophils % (A) 6 %; HCT 36.9 % (39.0-53.0); HGB 12.7 gm/dL (13.0-17.5); Lymphocytes # (A) 1.7 k/uL (1.0-4.8); Lymphocytes % (A) 18 %; MCH 33.4 pg (25.0-35.0); MCHC 34.4 g/dL (31.0-37.0); MCV 97.2 fL (80.0-100.0); Mean Platelet Volume 7.3; Monocytes # (A) 0.6 k/uL (0-1.0); Monocytes % (A) 6 %; Neutrophils # (A) 6.2 k/uL (1.3-7.7); Neutrophils % (A) 67 %; Platelet Count 230 k/uL (150-450); RBC 3.79 m/uL (4.30-5.90); RDW 12.4 % (11.5-15.5); WBC 9.2 k/uL (3.8-10.6)
[2023-04-22 13:57] LABS: ALT 22 U/L (4-49); AST 25 U/L (17-59); African American GFR (CKD) 81 (>60 ml/min/1.73 sqM); Albumin 3.5 g/dL (3.5-5.0); Alkaline Phosphatase 60 U/L (38-126); Anion Gap 8 mmol/L; Blood Urea Nitrogen 23 mg/dL (9-20); Calcium 8.5 mg/dL (8.4-10.2); Carbon Dioxide 26 mmol/L (22-30); Chloride 103 mmol/L (98-107); Glucose 91 mg/dL (74-99); Lipase 37 U/L (23-300); Magnesium 2.2 mg/dL (1.6-2.3); Non-African American GFR(CKD) 70 (>60 ml/min/1.73 sqM); Potassium 4.3 mmol/L (3.5-5.1); Sodium 137 mmol/L (137-145); Total Bilirubin 0.5 mg/dL (0.2-1.3); Total Protein 6.4 g/dL (6.3-8.2)
[2023-04-22 13:58] LABS: INR 0.9 (<1.2); Partial Thromboplastin Time 22.7 sec (22.0-30.0); Prothrombin Time 10.3 sec (10.0-12.5)
[2023-04-22 14:05] LABS: NT-Pro-B-Type Natriuretic Pept 257 pg/mL
--- NOTE | 2023-04-22 14:09 | XR ---
EXAMINATION TYPE: XR chest 2V DATE OF EXAM: 04/22/2023 COMPARISON: 12/24/2018 INDICATION: Chest pain and difficulty breathing TECHNIQUE: Single frontal view of the chest is obtained. FINDINGS: The heart size is normal. The pulmonary vasculature is normal. Scattered diffuse increased lung markings are present. Findings are nonspecific. Consider atypical pn eumonia. Follow-up can be performed IMPRESSION: 1. Scattered mild increased lung markings, consider atypical pneumonia.
[2023-04-22] MEDS ORDERED: NITROGLYCERIN SL TABS 0.4 MG TAB SUBLINGUAL PRN (14:43)
[2023-04-22] MEDS ORDERED: ASPIRIN 81 MG PO STA (14:43)
[2023-04-22] MEDS ORDERED: NALOXONE 0.4 MG/ML 1 ML VIAL IV PRN (15:30)
[2023-04-22] MEDS ORDERED: SODIUM CHLORIDE 0.9% 1,000 ML IV ONE (15:47)
[2023-04-22] MEDS ORDERED: MAG HYDROX/AL HYDROX/SIMETH 30 ML CUP PO PRN (15:58)
--- NOTE | 2023-04-22 17:29 | P.HPIM ---
History of Present Illness H&P Date: 04/22/23 63-year-old male with PMH of CAD, hypertension, COPD presents the ED from [place]. Patient reports chest pain that started 2 days ago. Chest pain is left-sided, pressure-like in nature, nonradiating associated with nausea and diaphoresis. He took 2 sublingual nitroglycerin tablets at that time which relieved his chest pain. This morning, he started to experience similar chest pain as he was walking to obtain his morning medications. Chest pain was 5 out of 10 in severity which improved to 1-2 out of 10 in severity after taking sublingual nitroglycerin. Pain is nontender to palpation and does not worsen with deep inspiration. He does not follow a watch engine operator. He reports 2 stents that was placed 4 years ago from [facility]. Patient also reports worsening exertional shortness of breath over the past 2 weeks. In the ED, he underwent extensive evaluation. CBC showed hemoglobin of 12.7. INR was 0.9. CMP showed BUN of 23. BNP 257. Troponin less than 0.0122. Lipase within normal limits. COVID-19 negative. EKG showed sinus bradycardia and Q waves in lead V1 and V2. Chest x-ray showed scattered increased lung markings, consider atypical pneumonia. Pertinent positives and negatives as discussed in HPI, a complete review of systems was performed and all other systems are negative. General: non toxic, no distress, appears at stated age Derm: warm, dry Head: atraumatic, normocephalic, symmetric Eyes: EOMI, no lid lag, anicteric sclera Cardiovascular: S1S2 reg, no murmur Lungs: End expiratory wheezing bilateral, no rhonchi, no rales , no accessory muscle use Ext: no gross muscle atrophy, no edema, no contractures Neuro: no focal neuro deficits Psych: Alert, oriented, appropriate affect Chest pain with history of CAD Normocytic anemia Elevated BUN Chronic conditions: Hypertension, COPD Based on my assessment of this patient, this patient meets a high complexity lev el of care. Patient has a chest pain with severe exacerbation or progression of disease which poses a threat to life or bodily function. He does have a history of CAD. Chest pain with history of CAD: ASA 325 mg x 1. Restart Brilinta 90 mg PO BID. Telemetry monitoring. Echo. Cardiology consult. Normocytic anemia: Trend. Transfuse if Hg < 7. Elevated BUN: Status post 1L NS bolus. Lovenox SQ for DVT prophylaxis. FULL CODE. I have reviewed the following automotive consultant notes: I have reviewed the results of the following tests: As above. I have ordered the following tests: Troponin. Echo. D-Dimer I have discussed the care of this patient with the following independent historian: I have independently interpreted the following test below: EKG as above. I have discussed the management of this patient with the following physician: Past Medical History Past Medical History: COPD, GI Bleed, Liver Disease, Respiratory Disorder Additional Past Medical History / Comment(s): herniated disks History of Any Multi-Drug Resistant Organisms: None Reported Past Surgical History: Orthopedic Surgery Additional Past Surgical History / Comment(s): r knee surgery. had staph infection. Past Anesthesia/Blood Transfusion Reactions: No Reported Reaction Past Psychological History: No Psychological Hx Reported Past Alcohol Use History: None Reported Past Drug Use History: Cocaine, Opiates - Past Family History Father Family Medical History: Myocardial Infarction ([place]) Mother Additional Family Medical History / Comment(s): had colon resection/copd suspected PE ( from) Medications and Allergies Home Medications Medication Instructions Recorded Confirmed Type Buprenorphine HCl/Naloxone HCl 1 film SUBLINGUAL DAILY 12/24/18 04/22/23 History [Suboxone 8 mg-2 mg Sl Film] Budesonide/Formoterol Fumarate 1 puff INHALATION RT-BID 04/22/23 04/22/23 History [Symbicort 80-4.5 Mcg Inhaler] Divalproex Sodium [Depakote] 500 mg PO BID 04/22/23 04/22/23 History Isosorbide Mononitrate ER [Imdur] 30 mg PO DAILY 04/22/23 04/22/23 History Mag Hydrox/Aluminum Hyd/Simeth 30 ml PO Q4H PRN 04/22/23 04/22/23 History [Mylanta Maximum Strength Liq] Metoprolol Tartrate [Lopressor] 25 mg PO BID 04/22/23 04/22/23 History Nitroglycerin Sl Tabs [Nitrostat] 0.4 mg SL Q5M PRN 04/22/23 04/22/23 History Ticagrelor [Brilinta] 90 mg PO BID 04/22/23 04/22/23 History buPROPion XL [Wellbutrin XL] 150 mg PO DAILY 04/22/23 04/22/23 History traZODone HCL 150 mg PO HS 04/22/23 04/22/23 History Allergies Allergy/AdvReac Type Severity Reaction Status Date / Time morphine Allergy Itching Verified 12/24/18 12:23 Penicillins Allergy Anaphylaxis Verified 04/22/23 13:47 diphenhydramine AdvReac "Passes Verified 04/22/23 13:48 [From Benadryl] Out" Physical Exam Vitals: Vital Signs Temp Pulse Resp BP Pulse Ox 04/22/23 15:00 98.0 F 58 L 23 107/64 97 04/22/23 14:46 54 L 8 L 103/60 97 04/22/23 12:52 97.9 F 60 16 86/51 97 Intake and Output 04/22/23 04/22/23 04/22/23 06:59 14:59 22:59 Other: Weight 75.977 kg Results CBC & Chem 7: 04/22/23 13:32 04/22/23 13:32 Labs: Abnormal Lab Results - Last 24 Hours (Table) 04/22/23 04/22/23 Range/Units 13:32 13:32 RBC 3.79 L (4.30-5.90) m/uL Hgb 12.7 L (13.0-17.5) gm/dL Hct 36.9 L (39.0-53.0) % BUN 23 H (9-20) mg/dL
[2023-04-22 18:37] VITALS: RESP 16
[2023-04-22] MEDS: DIVALPROEX 500 MG TABLET.DR PO SCH (19:52)
[2023-04-22] MEDS: traZODone HCL 50 MG TAB PO SCH (19:52)
[2023-04-22] MEDS: SYMBICORT 80-4.5 MCG INHALER INHALATION SCH (20:12)
[2023-04-22 20:32] LABS: Glucose,Whole Blood 204 mg/dL (70-110)
[2023-04-22] MEDS ORDERED: ACETAMINOPHEN TAB 325 MG TAB PO STA (20:47)
[2023-04-22] MEDS ORDERED: TICAGRELOR 90 MG TAB PO SCH (21:00)
[2023-04-23 08:58] LABS: Basophils # (A) 0.09 X 10*3/uL (0.00-0.10); Basophils % (A) 1.2 %; Eosinophils # (A) 0.53 X 10*3/uL (0.04-0.35); Eosinophils % (A) 6.9 %; HCT 38.7 % (39.6-50.0); HGB 12.6 d/dL (13.0-17.0); Lymphocytes # (A) 1.93 X 10*3/uL (0.90-5.00); MCH 31.9 pg (27.0-32.0); MCHC 32.6 d/dL (32.0-37.0); Mean Platelet Volume 9.9 FL (9.5-12.2); Monocytes # (A) 0.65 X 10*3/uL (0.20-1.00); Monocytes % (A) 8.4 %; NRBC Per 100 WBC 0 X 10*3/uL (0.00-0.01); Neutrophils # (A) 4.48 X 10*3/uL (1.80-7.70); Platelet Count 247 X 10*3/uL (140-440); RBC 3.95 X 10*6/uL (4.40-5.60); RDW 12.3 % (11.5-14.5); WBC 7.72 X 10*3/uL (4.50-10.00)
[2023-04-23] MEDS: SYMBICORT 80-4.5 MCG INHALER INHALATION SCH ×2 (09:12→18:21)
[2023-04-23 09:15] LABS: BUN/Creat Ratio 14.69 Ratio (12.00-20.00); Blood Urea Nitrogen 19.1 mg/dL (9.0-27.0); Carbon Dioxide 22.5 mmol/L (21.6-31.8); Chloride 105 mmol/L (96-109); Glucose 90 mg/dL (70-110); Potassium 5.1 mmol/L (3.5-5.5); Sodium 143 mmol/L (135-145)
--- NOTE | 2023-04-23 09:49 | P.CRDCN ---
History of Present Illness History of present illness: HISTORY OF PRESENT ILLNESS: This is a 63 year old male with a past medical history significant for coronary artery disease with previous stenting 2 and prescription drug abuse. Patient does not follow with a associate director data & analytics. We have been asked to see the patient in co nsultation for chest pain. Patient examined at the bedside. The patient states he has been at [facility] [place] for 3 days secondary to prescription drug abuse. He states after the first day he began having chest pain and has been having chest pain for the past 2 days. He states his first initial episode felt like pressure in the middle of his chest. He states yesterday the pain was more sharp in nature and folic summary was stabbing him. He states the pain is worse with exertion and has been doing a lot of walking at [facility]. He does report that he took 2 sublingual nitro with some relief of his chest pain. The patient reports he had 2 stents placed approximately 2 years ago at [facility]. He states he has not followed with a associate director data & analytics since been in the hospital. He reports taking Brilinta on an outpatient basis and states he has missed some of his doses. He denies taking any aspirin. He is a nonsmoker. He denies alcohol use. * EKG reveals sinus mechanism with no signs of acute ischemia * Chest xray scattered mild increased lung markings, consider atypical pneumonia * Current home cardiac medications include metoprolol tartrate 25 mg twice a day, Brilinta 90 mg twice a day, Imdur 30 mg daily * No previous echocardiogram or cardiac catheterization available and EMR for review REVIEW OF SYSTEMS: At the time of my exam: CONSTITUTIONAL: Denies fever or chills. HEENT: Denies blurred vision, vision changes, or eye pain. Denies hemoptysis CARDIOVASCULAR: Denies chest pain. Denies orthopnea. Denies PND. Denies palpitations RESPIRATORY: Denies shortness of breath. GASTROINTESTINAL: Denies abdominal pain. Denies nausea or vomiting. HEMATOLOGIC: Denies bleeding disorders. GENITOURINARY: Denies any blood in urine. SKIN: Denies pruitis. Denies rash. PHYSICAL EXAM: VITAL SIGNS: Reviewed. GENERAL: Well-developed in no acute distress. HEENT: Head is normocephalic. Pupils are equal, round. Sclerae anicteric. Mucous membranes of the mouth are moist. Neck supple. No JVD or thyromegaly LUNGS: Respirations even and unlabored. Lungs essentially clear to auscultation bilaterally. HEART: Regular rate and rhythm. S1 and S2 heard. ABDOMEN: Soft. Nondistended. Nontender. EXTREMITIES: Normal range of motion. No clubbing or cyanosis. Peripheral pulses intact. No lower extremity edema NEUROLOGIC: Awake and alert. Oriented x 3. ASSESSMENT: Chest pain, troponins negative 3 Coronary artery disease with previous stenting 2, performed at [facility] approximately 2 years ago, details unknown Prescription drug abuse, currently at [facility] for rehabilitation PLAN: An acute coronary event has been ruled out Discontinue Brilinta Add aspirin 81 mg daily atorvastatin 40 mg at night Resume additional home cardiac medications Obtain 2-D echo to assess cardiac structure and function Patient to undergo Cardiolite stress test today Obtain records from [facility] Further recommendations pending patient's course Nurse practitioner note has been reviewed by physician. Signing provider agrees with the documented findings, assessment, and plan of care. Past Medical History Past Medical History: COPD, GI Bleed, Liver Disease, Respiratory Disorder Additional Past Medical History / Comment(s): herniated disks History of Any Multi-Drug Resistant Organisms: None Reported Past Surgical History: Orthopedic Surgery Additional Past Surgical History / Comment(s): r knee surgery. had staph in fection. Past Anesthesia/Blood Transfusion Reactions: No Reported Reaction Past Psychological History: No Psychological Hx Reported Past Alcohol Use History: None Reported Past Drug Use History: Cocaine, Opiates - Past Family History Father Family Medical History: Myocardial Infarction ([place]) Mother Additional Family Medical History / Comment(s): had colon resection/copd suspected PE ( from) Medications and Allergies Home Medications Medication Instructions Recorded Confirmed Type Buprenorphine HCl/Naloxone HCl 1 film SUBLINGUAL DAILY 12/24/18 04/22/23 History [Suboxone 8 mg-2 mg Sl Film] Budesonide/Formoterol Fumarate 1 puff INHALATION RT-BID 04/22/23 04/22/23 History [Symbicort 80-4.5 Mcg Inhaler] Divalproex Sodium [Depakote] 500 mg PO BID 04/22/23 04/22/23 History Isosorbide Mononitrate ER [Imdur] 30 mg PO DAILY 04/22/23 04/22/23 History Mag Hydrox/Aluminum Hyd/Simeth 30 ml PO Q4H PRN 04/22/23 04/22/23 History [Mylanta Maximum Strength Liq] Metoprolol Tartrate [Lopressor] 25 mg PO BID 04/22/23 04/22/23 History Nitroglycerin Sl Tabs [Nitrostat] 0.4 mg SL Q5M PRN 04/22/23 04/22/23 History Ticagrelor [Brilinta] 90 mg PO BID 04/22/23 04/22/23 History buPROPion XL [Wellbutrin XL] 150 mg PO DAILY 04/22/23 04/22/23 History traZODone HCL 150 mg PO HS 04/22/23 04/22/23 History Allergies Allergy/AdvReac Type Severity Reaction Status Date / Time morphine Allergy Itching Verified 12/24/18 12:23 Penicillins Allergy Anaphylaxis Verified 04/22/23 13:47 diphenhydramine AdvReac "Passes Verified 04/22/23 13:48 [From Benadryl] Out" Physical Exam Vitals: Vital Signs Temp Pulse Pulse Resp BP BP Pulse Ox 04/23/23 02:58 97.5 F L 65 16 99/56 94 L 04/22/23 20:00 62 16 04/22/23 18:34 99.0 F 62 16 98/54 99 04/22/23 17:56 18 106/46 98 04/22/23 17:55 98.1 F 59 L 16 106/46 99 04/22/23 15:00 98.0 F 58 L 23 107/64 97 04/22/23 14:46 54 L 8 L 103/60 97 04/22/23 12:52 97.9 F 60 16 86/51 97 Intake and Output 04/22/23 04/23/23 04/23/23 22:59 06:59 14:59 Intake Total 480 Balance 480 Intake: Oral 480 Other: # Voids 1 2 Weight 75.977 kg Results 04/23/23 05:33 04/23/23 05:33 Cardiac Enzymes 04/22/23 04/22/23 04/22/23 Range/Units 13:32 13:32 15:38 AST 25 (17-59) U/L Troponin I <0.012 <0.012 (0.000-0.034) ng/mL 04/22/23 Range/Units 17:40 AST (17-59) U/L Troponin I <0.012 (0.000-0.034) ng/mL Coagulation 04/22/23 Range/Units 13:32 PT 10.3 (10.0-12.5) sec APTT 22.7 (22.0-30.0) sec CBC 04/22/23 Range/Units 13:32 WBC 9.2 (3.8-10.6) k/uL RBC 3.79 L (4.30-5.90) m/uL Hgb 12.7 L (13.0-17.5) gm/dL Hct 36.9 L (39.0-53.0) % Plt Count 230 (150-450) k/uL Comprehensive Metabolic Panel 04/22/23 Range/Units 13:32 Sodium 137 (137-145) mmol/L Potassium 4.3 (3.5-5.1) mmol/L Chloride 103 (98-107) mmol/L Carbon Dioxide 26 (22-30) mmol/L BUN 23 H (9-20) mg/dL Creatinine 1.11 (0.66-1.25) mg/dL Glucose 91 (74-99) mg/dL Calcium 8.5 (8.4-10.2) mg/dL AST 25 (17-59) U/L ALT 22 (4-49) U/L Alkaline Phosphatase 60 (38-126) U/L Total Protein 6.4 (6.3-8.2) g/dL Albumin 3.5 (3.5-5.0) g/dL Current Medications Generic Name Dose Route Start Last Admin Trade Name Freq PRN Reason Stop Dose Admin Al Hydroxide/Mg Hydroxide 30 ml 04/22/23 15:58 Mag Hydrox/Al Hydrox/Simeth 30 Ml Cup PO Q4H PRN GI Upset Budesonide/Formoterol Fumarate 1 puff 04/22/23 20:00 04/22/23 20:12 Symbicort 80-4.5 Mcg Inhaler INHALATION 1 puff RT-BID AUDREY Administration Bupropion HCl 150 mg 04/23/23 09:00 Bupropion Xl 150 Mg Tab.Er.24h PO DAILY AUDREY Divalproex Sodium 500 mg 04/22/23 21:00 04/22/23 19:52 Divalproex 500 Mg Tablet.Dr PO 500 mg BID AUDREY Administration Isosorbide Mononitrate 30 mg 04/23/23 09:00 Isosorbide Mononitrate Er 30 Mg Tab.Er.24h PO DAILY AUDREY Naloxone HCl 0.2 mg 04/22/23 15:30 Naloxone 0.4 Mg/Ml 1 Ml Vial IV Q2M PRN Opioid Reversal Nitroglycerin 0.4 mg 04/22/23 14:43 Nitroglycerin Sl Tabs 0.4 Mg Tab SUBLINGUAL Q5M PRN Chest Pain Non-Formulary Medication 1 film 04/23/23 09:00 Buprenorphine Hcl/Naloxone Hcl [Suboxone 8 Mg-2 Mg Sl Film] SUBLINGUAL DAILY AUDREY Ticagrelor 90 mg 04/22/23 21:00 04/22/23 19:52 Ticagrelor 90 Mg Tab PO 90 mg BID AUDREY Administration Trazodone HCl 150 mg 04/22/23 21:00 04/22/23 19:52 Trazodone Hcl 50 Mg Tab PO 150 mg HS AUDREY Administration Intake and Output 04/22/23 04/23/23 04/23/23 22:59 06:59 14:59 Intake Total 480 Balance 480 Intake: Oral 480 Other: # Voids 1 2 Weight 75.977 kg 04/22/23 13:32 04/22/23 13:32
--- NOTE | 2023-04-23 11:05 | CA ---
Lexiscan Nuclear Stress Test Report Name: Jorgito Figueroa Exam Date: 04/23/2023 10:16 Exam Location: [facility] Ht (in): 69 Wt (lb): 167 BSA: 1.91 Ordering Phys: Corry Rosales Referring Phys: Vidal, Technologist: CATRACHITO,, Age: 63 Gender: M : 1960 Procedure CPT: Indications: Reflex order-Stress test ICD-10 Codes: Patient History: Chest pain shortness of breath and palpitations Medications: Meds past 24 hrs: Pretest Chest Pain: STRESS TEST Lexiscan Protocol Exercise Duration (min:sec): 02:[address] Depressions (mm): Angina Score: John Score: Resting HR (bpm): 63 Peak HR (bpm): 82 Resting BP (mmHg): 129 / 65 Peak BP (mmHg): 130 / 66 MPHR: 156 Target HR: 133 % MPHR: 53 METS: 1.0 Total Dose: Peak Dose: Atropine: Double Product: 22634 BP Response: Stress Termination: infusion complete Stress Symptoms: Dyspnea Stress Summary: ECG ANALYSIS Resting ECG: Stress ECG: CONCLUSIONS RESTING EKG: [Normal sinus rhythm, normal EKG] , Heart rate 63 BPM Patient recieved IV infusion of Lexiscan 0.4mg and at peak infusion STRESS EKG showed: [No significant ST-T wave changes diagnostic for ischemia by ST segment analysis] ARRYTHMIAS: [No ectopic rhythms or sustained arrythmias] CONCLUSION: 1. Normal hemodynamic and heart response to Lexiscan infusion. 2. Non-ischemic EKG response to lexiscan infusion 3. Nuclear perfusion imaging is reported separately by the radiology team. Please refer to that report for complete interpretation of this study. Dr Agapito Marinelli (Electronically Signed) Final Date: 23 April 2023 11:04
[2023-04-23] MEDS: buPROPion XL 150 MG TAB.ER.24H PO SCH (11:54)
[2023-04-23] MEDS: ISOSORBIDE MONONITRATE ER 30 MG TAB.ER.24H PO SCH (11:54)
[2023-04-23] MEDS: ASPIRIN 81 MG PO SCH (11:54)
[2023-04-23] MEDS: NON FORMULARY DRUG (Buprenorphine Hcl/Naloxone Hcl [Suboxone 8 Mg-2 Mg Sl Film] 1 EACH Fil SUBLINGUAL SCH (11:54)
[2023-04-23] MEDS: DIVALPROEX 500 MG TABLET.DR PO SCH ×2 (11:54→21:33)
[2023-04-23] MEDS: RANOLAZINE 500 MG TAB.ER.12H PO SCH ×2 (15:59→21:33)
--- NOTE | 2023-04-23 18:10 | P.PN ---
Subjective Progress Note Date: 04/23/23 63-year-old male with PMH of CAD, hypertension, COPD presents the ED from [place]. Patient reports chest pain that started 2 days ago. Chest pain is left-sided, pressure-like in nature, nonradiating associated with nausea and diaphoresis. He took 2 sublingual nitroglycerin tablets at that time which relieved his chest pain. This morning, he started to experience similar chest pain as he was walking to obtain his morning medications. Chest pain was 5 out of 10 in severity which improved to 1-2 out of 10 in severity after taking sublingual nitroglycerin. Pain is nontender to palpation and does not worsen with deep inspiration. He does not follow a cumulative effects analyst. He reports 2 stents that was placed 4 years ago from [facility]. Patient also reports worsening exertional shortness of breath over the past 2 weeks. In the ED, he underwent extensive evaluation. CBC showed hemoglobin of 12.7. INR was 0.9. CMP showed BUN of 23. BNP 257. Troponin less than 0.0122. Lipase within normal limits. COVID-19 negative. EKG showed sinus bradycardia and Q waves in lead V1 and V2. Chest x-ray showed scattered increased lung markings, consider atypical pneumonia. 04/23 Patient seen and examined. No chest pain. Trops negative x 3. Cardiology recommends stress test. D-Dimer negative. General: non toxic, no distress, appears at stated age Derm: warm, dry Head: atraumatic, normocephalic, symmetric Eyes: EOMI, no lid lag, anicteric sclera Cardiovascular: S1S2 reg, no murmur Lungs: End expiratory wheezing bilateral, no rhonchi, no rales , no accessory muscle use Ext: no gross muscle atrophy, no edema, no contractures Neuro: no focal neuro deficits Psych: Alert, oriented, appropriate affect Chest pain with history of CAD Normocytic anemia Elevated BUN Chronic conditions: Hypertension, COPD Based on my assessment of this patient, this patient meets a moderate complexity level of care. Patient has a chest pain with severe exacerbation or progression of disease which poses a threat to life or bodily function. He does have a history of CAD. Chest pain with history of CAD: ASA 325 mg x 1. Restart Brilinta 90 mg PO BID. Telemetry monitoring. Echo. Stress test, Cardiology consult. Normocytic anemia: Trend. Transfuse if Hg < 7. Elevated BUN: Status post 1L NS bolus. Lovenox SQ for DVT prophylaxis. FULL CODE. I have reviewed the following retail sales consultant notes: I have reviewed the results of the following tests: Trop. D-Dimer I have ordered the following tests: Echo. Agree with stress I have discussed the care of this patient with the following independent historian: I have independently interpreted the following test below: I have discussed the management of this patient with the following physician: Objective - Vital Signs Vital signs: Vital Signs Temp 97.8 F 04/23/23 15:00 Pulse 80 04/23/23 15:00 Resp 16 04/23/23 15:00 BP 99/59 04/23/23 15:00 Pulse Ox 95 04/23/23 15:00 FiO2 Intake & Output 04/22/23 04/23/23 04/23/23 18:59 06:59 18:59 Intake Total 480 236 Balance 480 236 Weight 75.977 kg Intake: Oral 480 236 Other: # Voids 2 1 - Labs CBC & Chem 7: 04/23/23 05:33 04/23/23 05:33 Labs: Abnormal Lab Results - Last 24 Hours (Table) 04/22/23 04/23/23 04/23/23 Range/Units 20:31 05:33 05:33 RBC 3.95 L (4.40-5.60) X 10*6/uL Hgb 12.6 L (13.0-17.0) d/dL Hct 38.7 L (39.6-50.0) % MCV 98.0 H (80.0-97.0) FL Eosinophils # 0.53 H (0.04-0.35) X 10*3/uL Anion Gap 15.50 H (4.00-12.00) mmol/L POC Glucose (mg/dL) 204 H (70-110) mg/dL
[2023-04-23] MEDS ORDERED: ATORVASTATIN 40 MG TAB PO SCH (21:00)
[2023-04-23] MEDS: traZODone HCL 50 MG TAB PO SCH (21:33)
[2023-04-23] MEDS: METOPROLOL TARTRATE 25 MG TAB PO SCH (21:33)
[2023-04-24] MEDS: NON FORMULARY DRUG (Buprenorphine Hcl/Naloxone Hcl [Suboxone 8 Mg-2 Mg Sl Film] 1 EACH Fil SUBLINGUAL SCH (08:06)
[2023-04-24] MEDS: METOPROLOL TARTRATE 25 MG TAB PO SCH (08:06)
[2023-04-24] MEDS: buPROPion XL 150 MG TAB.ER.24H PO SCH (08:06)
[2023-04-24] MEDS: RANOLAZINE 500 MG TAB.ER.12H PO SCH (08:06)
[2023-04-24] MEDS: DIVALPROEX 500 MG TABLET.DR PO SCH (08:06)
[2023-04-24] MEDS: ISOSORBIDE MONONITRATE ER 30 MG TAB.ER.24H PO SCH (08:06)
[2023-04-24] MEDS: ASPIRIN 81 MG PO SCH (08:06)
--- NOTE | 2023-04-24 08:08 | NM ---
EXAMINATION TYPE: NM stress lexiscan cardiolite DATE OF EXAM: 04/23/2023 COMPARISON: NONE HISTORY: Chest pain TECHNIQUE: After the intravenous administration of 10.3 mCi Tc 99m Sestamibi - Cardiolite resting SP ECT images acquired 45 minutes post injection. At peak stress 26.4 mCi Tc 99m Sestamibi - Stress images obtained 65 minutes post injection The patient was stressed with 0.4mg Lexiscan. FINDINGS: There is diminished radiotracer accumulation along the anterior lateral wall extending from the proxi mal third to the cardiac apex. Finding appears to be fixed between rest and stress. Findings can be c ompatible with prior infarct. No stress-induced ischemic changes evident. There appears to be some dyskinesia of the cardiac apex and distal anterior wall. Ejection fraction is calculated to be 51 %. IMPRESSION: 1. 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 2. Dyskinesia of the cardiac apex and distal anterior wall. 3. Ejection fraction is just above normal at 51%. Normal greater than 50%.
[2023-04-24 08:24] VITALS: BP 95/54; PULSE 53; TEMP 97.6
[2023-04-24] MEDS: SYMBICORT 80-4.5 MCG INHALER INHALATION SCH (08:53)
--- NOTE | 2023-04-24 11:22 | P.PN ---
Subjective HISTORY OF PRESENT ILLNESS: This is a 63 year old male with a past medical history significant for coronary artery disease with previous stenting 2 and prescription drug abuse. Patient does not follow with a weight analyst. We have been asked to see the patient in consultation for chest pain. Patient examined at the bedside. The patient states he has been at [facility] for 3 days secondary to prescription drug abuse. He states after the first day he began having chest pain and has been having chest pain for the past 2 days. He states his first initial episode felt like pressure in the middle of his chest. He states yesterday the pain was more sharp in nature and folic summary was stabbing him. He states the pain is worse with exertion and has been doing a lot of walking at [facility]. He does report that he took 2 sublingual nitro with some relief of his chest pain. The patient reports he had 2 stents placed approximately 2 years ago at [facility]. He states he has not followed with a weight analyst since been in the hospital. He reports taking Brilinta on an outpatient basis and states he has missed some of his doses. He denies taking any aspirin. He is a nonsmoker. He denies alcohol use. * EKG reveals sinus mechanism with no signs of acute ischemia * Chest xray scattered mild increased lung markings, consider atypical pneumonia * Current home cardiac medications include metoprolol tartrate 25 mg twice a day, Brilinta 90 mg twice a day, Imdur 30 mg daily * No previous echocardiogram or cardiac catheterization available and EMR for review Addendum entered and electronically signed by Corry Rosales NP-C 04/23/23 12:31: Records reviewed from [facility]. Patient was admitted in March 2021. He presented with symptoms consistent with angina. He underwent a stress test which was abnormal and subsequently underwent cardiac catheterization with PCI to the distal LAD and mid LAD. Additional findings included Left circumflex is a large nondominant vessel revealing mild antral luminary irregularities. RCA is a large dominant vessel originating from the right coronary sinus and revealing mild antral luminary irregularity. LV angiogram revealed preserved left ventricular systolic function. Estimated around 50%. LVEDP was relatively low at 11 mmHg. 04/24/2023 Patient examined this morning at the bedside. Patient denies any further episode of chest pain or pressure. He denies any shortness of breath. Patient underwent Grecia scan stress test yesterday revealing fixed defect compatible with prior infarct anterior lateral wall extending to the cardiac apex. Dyskinesia of the cardiac apex and distal anterior wall. PHYSICAL EXAM: VITAL SIGNS: Reviewed. GENERAL: Well-developed in no acute distress. HEENT: Head is normocephalic. Pupils are equal, round. Sclerae anicteric. Mucous membranes of the mouth are moist. Neck supple. No JVD or thyromegaly LUNGS: Respirations even and unlabored. Lungs essentially clear to auscultation bilaterally. HEART: Regular rate and rhythm. S1 and S2 heard. ABDOMEN: Soft. Nondistended. Nontender. EXTREMITIES: Normal range of motion. No clubbing or cyanosis. Peripheral pulses intact. No lower extremity edema NEUROLOGIC: Awake and alert. Oriented x 3. ASSESSMENT: Chest pain, troponins negative 3 Coronary artery disease with previous stenting 2, performed at [facility] approximately 2 years ago, details unknown Prescription drug abuse, currently at [facility] for rehabilitation PLAN: Continue current cardiac medications Ranexa added to patient's medication regimen Patient is currently stable from a cardiac standpoint to be discharged back to [facility] We will sign off. Please reconsult if needed. Nurse practitioner note has been reviewed by physician. Signing provider agrees with the documented findings, assessment, and plan of care. Objective - Vital Signs Vital signs: Vital Signs Temp 97.6 F 04/24/23 07:40 Pulse 53 L 04/24/23 07:40 Resp 16 04/24/23 07:40 BP 95/54 04/24/23 07:40 Pulse Ox 95 04/24/23 07:40 FiO2 Intake & Output 04/23/23 04/24/23 04/24/23 18:59 06:59 18:59 Intake Total 656 Balance 656 Intake: Oral 656 Other: # Voids 1 2 - Labs CBC & Chem 7: 04/23/23 05:33 04/23/23 05:33
--- NOTE | 2023-04-24 14:29 | P.DS ---
Providers Date of admission: 04/22/23 15:30 Expected date of discharge: 04/24/23 Attending physician: John Drake MD Consults: 04/22/23 15:30 Consult Physician Urgent Consulting Provider: [facility] Consult Reason/Comments: acute chest pain, hx ascad Do you want consulting provider notified?: Yes Primary care physician: Stated None Hospital Course: 63-year-old male with PMH of CAD, hypertension, COPD presents the ED from [place]. Patient reports chest pain that started 2 days ago. Chest pain is left-sided, pressure-like in nature, nonradiating associated with nausea and diaphoresis. He took 2 sublingual nitroglycerin tablets at that time which relieved his chest pain. This morning, he started to experience similar chest pain as he was walking to obtain his morning medications. Chest pain was 5 out of 10 in severity which improved to 1-2 out of 10 in severity after taking sublingual nitroglycerin. Pain is nontender to palpation and does not worsen with deep inspiration. 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 He reports 2 stents that was placed 4 years ago from [facility]. Patient also reports worsening exertional shortness of breath over the past 2 weeks. In the ED, he underwent extensive evaluation. CBC showed hemoglobin of 12.7. INR was 0.9. CMP showed BUN of 23. BNP 257. Troponin less than 0.0122. Lipase within normal limits. COVID-19 negative. EKG showed sinus bradycardia and Q waves in lead V1 and V2. Chest x-ray showed scattered increased lung markings, consider atypical pneumonia. 04/23 Patient seen and examined. No chest pain. Trops negative x 3. Cardiology recommends stress test. D-Dimer negative. 04/24 Patient seen and examined. No chest pain. Lexiscan shows fixed defect. Discussed with Dr. Marinelli, cleared for discharge, Ranolazine ordered. Follow up with Cardiology within 1 week. Pertinent studies include Echo, Lexiscan. General: non toxic, no distress, appears at stated age Derm: warm, dry Head: atraumatic, normocephalic, symmetric Eyes: EOMI, no lid lag, anicteric sclera Cardiovascular: S1S2 reg, no murmur Lungs: End expiratory wheezing bilateral, no rhonchi, no rales , no accessory muscle use Ext: no gross muscle atrophy, no edema, no contractures Neuro: no focal neuro deficits Psych: Alert, oriented, appropriate affect Discharge Diagnosis: Chest pain with history of CAD Normocytic anemia Elevated BUN Chronic conditions: Hypertension, COPD This complex discharge took 35 minutes to complete. Patient Condition at Discharge: Stable Plan - Discharge Summary Discharge Rx Participant: Yes New Discharge Prescriptions: New Ranolazine [Ranexa] 500 mg PO Q12HR #60 tab Aspirin 81 mg PO DAILY #30 tab Atorvastatin [Lipitor] 40 mg PO HS #30 tab Continue Buprenorphine HCl/Naloxone HCl [Suboxone 8 mg-2 mg Sl Film] 1 film SUBLINGUAL DAILY Budesonide/Formoterol Fumarate [Symbicort 80-4.5 Mcg Inhaler] 1 puff INHALATION RT-BID Metoprolol Tartrate [Lopressor] 25 mg PO BID buPROPion XL [Wellbutrin XL] 150 mg PO DAILY Mag Hydrox/Aluminum Hyd/Simeth [Mylanta Maximum Strength Liq] 30 ml PO Q4H PRN PRN Reason: Gi Upset traZODone HCL 150 mg PO HS Nitroglycerin Sl Tabs [Nitrostat] 0.4 mg SL Q5M PRN PRN Reason: Chest Pain Isosorbide Mononitrate ER [Imdur] 30 mg PO DAILY Divalproex Sodium [Depakote] 500 mg PO BID Discontinued Ticagrelor [Brilinta] 90 mg PO BID Discharge Medication List Buprenorphine HCl/Naloxone HCl [Suboxone 8 mg-2 mg Sl Film] 1 film SUBLINGUAL DAILY 12/24/18 [History] Budesonide/Formoterol Fumarate [Symbicort 80-4.5 Mcg Inhaler] 1 puff INHALATION RT-BID 04/22/23 [History] Divalproex Sodium [Depakote] 500 mg PO BID 04/22/23 [History] Isosorbide Mononitrate ER [Imdur] 30 mg PO DAILY 04/22/23 [History] Mag Hydrox/Aluminum Hyd/Simeth [Mylanta Maximum Strength Liq] 30 ml PO Q4H PRN 04/22/23 [History] Metoprolol Tartrate [Lopressor] 25 mg PO BID 04/22/23 [History] Nitroglycerin Sl Tabs [Nitrostat] 0.4 mg SL Q5M PRN 04/22/23 [History] buPROPion XL [Wellbutrin XL] 150 mg PO DAILY 04/22/23 [History] traZODone HCL 150 mg PO HS 04/22/23 [History] Aspirin 81 mg PO DAILY #30 tab 04/24/23 [Rx] Atorvastatin [Lipitor] 40 mg PO HS #30 tab 04/24/23 [Rx] Ranolazine [Ranexa] 500 mg PO Q12HR #60 tab 04/24/23 [Rx] Follow up Appointment(s)/Referral(s): Agapito Marinelli MD [Medical Doctor] - 1 Week None,Stated [Primary Care Provider] - 1-2 days Discharge Disposition: HOME SELF-CARE
--- NOTE | 2023-04-24 16:27 | CA ---
Transthoracic Echo Report Name: Jorgito Figueroa Age: 63 Gender: M : 1960 Exam Date: 04/23/2023 13:38 Exam Location: [place] Echo Ht (in): 69 Wt (lb): 167 Ordering Physician: Naty Mcdonnell MD Attending/Referring Phys: Client Experience Consultant Jannet Greer RDCS Procedure CPT: Indications: CP Cardiac Hx: Technical Quality: Fair Contrast 1: Total Dose (mL): Contrast 2: Total Dose (mL): MEASUREMENTS (Male / Female) Normal Values 2D ECHO LV Diastolic Diameter PLAX 4.7 cm 4.2 - 5.9 / 3.9 - 5.3 cm LV Systolic Diameter PLAX 2.6 cm IVS Diastolic Thickness 0.9 cm 0.6 - 1.0 / 0.6 - 0.9 cm LVPW Diastolic Thickness 1.2 cm 0.6 - 1.0 / 0.6 - 0.9 cm LV Relative Wall Thickness 0.5 RV Internal Dim ED PLAX 3.1 cm LA Volume 46.5 cm??? 18 - 58 / 22 - 52 cm??? LA Volume Index 24.1 cm???/m??? 16 - 28 cm???/m??? M-MODE Aortic Root Diameter MM 3.5 cm LA Systolic Diameter MM 3.9 cm LA Ao Ratio MM 1.1 AV Cusp Separation MM 2.3 cm DOPPLER AV Peak Velocity 143.7 cm/s AV Peak Gradient 8.3 mmHg AV Mean Velocity 111.1 cm/s AV Mean Gradient 5.3 mmHg AV Velocity Time Integral 30.0 cm LVOT Peak Velocity 106.7 cm/s LVOT Peak Gradient 4.6 mmHg LVOT Velocity Time Integral 20.0 cm MV Area PHT 3.6 cm??? Mitral E Point Velocity 77.3 cm/s Mitral A Point Velocity 90.0 cm/s Mitral E to A Ratio 0.9 MV Deceleration Time 210.8 ms MV E' Velocity 6.1 cm/s Mitral E to MV E' Ratio 12.6 TR Peak Velocity 205.2 cm/s TR Peak Gradient 16.8 mmHg Right Ventricular Systolic Press 21.8 mmHg FINDINGS Left Ventricle Normal Left ventricular size, wall thickness, systolic function with no obvious regional wall motion abnormalities. Normal Left ventricular diastolic filling pattern. Left ventricular ejection fraction is estimated at 55-60 %. Right Ventricle Normal right ventricular size and function. Right ventricular systolic pressure within normal limits. Right Atrium Normal right atrial size. Left Atrium Normal left atrial size. Mitral Valve Structurally normal mitral valve. Mitral valve thickened. Mild mitral annular calcification. Aortic Valve Trileaflet aortic valve. No aortic valve stenosis or regurgitation. Tricuspid Valve Structurally normal tricuspid valve. Mild tricuspid regurgitation. Pulmonic Valve Trace pulmonic regurgitation. Pericardium No pericardial effusion. Aorta Normal size aortic root and proximal ascending aorta. CONCLUSIONS Left ventricular ejection fraction is estimated at 55-60 %. Normal Left ventricular diastolic filling pattern. No obvious regional wall motion abnormalities. No significant chamber size abnormality No significant valvular function No pericardial effusion. Previewed by: Dr Agapito Marinelli (Electronically Signed) Final Date: 24 April 2023 16:26
== END 2023-04-24 15:11 | disposition home or self-care (01) ==
LOC: EC 12:40 → 6NMEDSUR 15:30
PROVIDERS: ADMIT Student in an Organized Health Care Education/Training Program; ATTEND Student in an Organized Health Care Education/Training Program
DX: R07.89 Other chest pain (principal); I25.10 Atherosclerotic heart disease of native coronary artery without angina pectoris; D64.9 Anemia, unspecified; J44.9 Chronic obstructive pulmonary disease, unspecified; I10 Essential (primary) hypertension; F19.10 Other psychoactive substance abuse, uncomplicated; K76.9 Liver disease, unspecified; R94.4 Abnormal results of kidney function studies; R00.1 Bradycardia, unspecified; G24.9 Dystonia, unspecified; R61 Generalized hyperhidrosis; R11.0 Nausea; Z79.02 Long term (current) use of antithrombotics/antiplatelets; Z79.51 Long term (current) use of inhaled steroids; Z79.899 Other long term (current) drug therapy; Z88.0 Allergy status to penicillin; Z88.5 Allergy status to narcotic agent; Z88.8 Allergy status to other drugs, medicaments and biological substances; Z95.5 Presence of coronary angioplasty implant and graft; Z87.19 Personal history of other diseases of the digestive system; Z86.19 Personal history of other infectious and parasitic diseases; Z98.890 Other specified postprocedural states; Z82.49 Family history of ischemic heart disease and other diseases of the circulatory system; Z82.5 Family history of asthma and other chronic lower respiratory diseases
CPT/HCPCS: 99285; 36415; 94640 ×4; 93005; 93017; 93306; 85379; 83880; 80053; 80048; 83690; 83735; 84484; 85025 ×2; 85610; 85730; 87635; 71046; 78452; G0378 ×3; A9500

== ENCOUNTER 2023-05-02 23:16 | Observation (INO) | payer MEDICARE, OTHER ==
--- NOTE | 2023-05-02 23:24 | ED ---
Chest Pain HPI - General Chief Complaint: Chest Pain Stated Complaint: Chest Pain Time Seen by Provider: 05/02/23 23:18 Source: patient, EMS, RN notes reviewed, old records reviewed Mode of arrival: EMS Limitations: no limitations - History of Present Illness Initial Comments: This is a 63-year-old male to the emergency department today. Patient presents with us for evaluation regards to chest pain weakness and what he feels like almost passing out. Patient chest pain in his back and his anterior chest. Patient is sent to us from from [place] where he was out of his pain started. Patient is a currently at [place] for polysubstance abuse. Patient has persistent chest pain here in the ER feels well MD Complaint: chest pain -: days(s) Onset: during exertion Pain Location: left chest Pain Radiation: none Severity: moderate Severity scale (1-10): 4 Quality: tightness, aching Consistency: constant Improves With: nothing Worsens With: nothing Anginal Symptoms: nausea, dyspnea Other Symptoms: cough Treatments Prior to Arrival: none - Related Data Home Medications Medication Instructions Recorded Confirmed Buprenorphine HCl/Naloxone HCl 1 film SUBLINGUAL DAILY 12/24/18 04/22/23 [Suboxone 8 mg-2 mg Sl Film] Budesonide/Formoterol Fumarate 1 puff INHALATION RT-BID 04/22/23 04/22/23 [Symbicort 80-4.5 Mcg Inhaler] Divalproex Sodium [Depakote] 500 mg PO BID 04/22/23 04/22/23 Isosorbide Mononitrate ER [Imdur] 30 mg PO DAILY 04/22/23 04/22/23 Mag Hydrox/Aluminum Hyd/Simeth 30 ml PO Q4H PRN 04/22/23 04/22/23 [Mylanta Maximum Strength Liq] Nitroglycerin Sl Tabs [Nitrostat] 0.4 mg SL Q5M PRN 04/22/23 04/22/23 buPROPion XL [Wellbutrin XL] 150 mg PO DAILY 04/22/23 04/22/23 traZODone HCL 150 mg PO HS 04/22/23 04/22/23 Previous Rx's Medication Instructions Recorded Aspirin 81 mg PO DAILY #30 tab 04/24/23 Atorvastatin [Lipitor] 40 mg PO HS #30 tab 04/24/23 Ranolazine [Ranexa] 500 mg PO Q12HR #60 tab 04/24/23 Celecoxib [CeleBREX] 200 mg PO BID #30 cap 05/03/23 Metoprolol Tartrate [Lopressor] 12.5 mg PO BID tab 05/03/23 Omeprazole [PriLOSEC] 40 mg PO AC-BRKFST #14 cap 05/03/23 predniSONE 10 mg PO DAILY #30 tab 05/03/23 Allergies Allergy/AdvReac Type Severity Reaction Status Date / Time morphine Allergy Itching Verified 12/24/18 12:23 Penicillins Allergy Anaphylaxis Verified 05/02/23 23:23 diphenhydramine AdvReac "Passes Verified 05/02/23 23:23 [From Benadryl] Out" Review of Systems ROS Statement: Those systems with pertinent positive or pertinent negative responses have been documented in the HPI. ROS Other: All systems not noted in ROS Statement are negative. EKG Findings - EKG Comments: EKG Findings:: EKG is sinus 60 CO 146 QRS 90 QTC 380 Past Medical History Past Medical History: COPD, GI Bleed, Liver Disease, Respiratory Disorder Additional Past Medical History / Comment(s): herniated disks History of Any Multi-Drug Resistant Organisms: None Reported Past Surgical History: Orthopedic Surgery Additional Past Surgical History / Comment(s): r knee surgery. had staph infection. Past Anesthesia/Blood Transfusion Reactions: No Reported Reaction Past Psychological History: No Psychological Hx Reported Past Alcohol Use History: None Reported Past Drug Use History: Cocaine, Opiates - Past Family History Father Family Medical History: Myocardial Infarction ([place]) Mother Additional Family Medical History / Comment(s): had colon resection/copd s uspected PE ( from) General Exam Limitations: no limitations General appearance: alert, in no apparent distress Head exam: Present: atraumatic, normocephalic, normal inspection Eye exam: Present: normal appearance, PERRL, EOMI. Absent: scleral icterus, conjunctival injection, periorbital swelling ENT exam: Present: normal exam, mucous membranes moist Neck exam: Present: normal inspection. Absent: tenderness, meningismus, lymp hadenopathy Respiratory exam: Present: normal lung sounds bilaterally. Absent: respiratory distress, wheezes, rales, rhonchi, stridor Cardiovascular Exam: Present: regular rate, normal rhythm, normal heart sounds. Absent: systolic murmur, diastolic murmur, rubs, gallop, clicks GI/Abdominal exam: Present: soft, normal bowel sounds. Absent: distended, tenderness, guarding, rebound, rigid Extremities exam: Present: normal inspection, full ROM, normal capillary refill. Absent: tenderness, pedal edema, joint swelling, calf tenderness Back exam: Present: normal inspection Neurological exam: Present: alert, oriented X3, CN II-XII intact Psychiatric exam: Present: normal affect, normal mood Skin exam: Present: warm, dry, intact, normal color. Absent: rash Course Vital Signs 05/02/23 05/03/23 05/03/23 23:20 00:02 03:49 Temperature 97.6 F 96.9 F L Pulse Rate 66 57 L 53 L Respiratory 16 18 16 Rate Blood Pressure 133/87 109/61 103/59 O2 Sat by Pulse 96 92 L 95 Oximetry 05/03/23 09:22 Temperature Pulse Rate 79 Respiratory 18 Rate Blood Pressure 126/98 O2 Sat by Pulse 96 Oximetry - Reevaluation(s) Reevaluation #1: 05/03/23 01:47 EDT Medical records reviewed Reevaluation #2: 05/03/23 01:48 EDT Patient symptoms improved Reevaluation #3: 05/03/23 01:48 EDT Patient informed results and questions answered Reevaluation #4: 05/03/23 01:46 EDT Was pt. sent in by a medical professional or institution (, PA, RED LEADER, urgent care, hospital, or halfway...) When possible be specific @ -no Did you speak to anyone other than the patient for history (EMS, parent, family, police, friend...)? What history was obtained from this source @ -no Did you review nursing and triage notes (agree or disagree)? Why? @ -agree Are old charts reviewed (outside hosp., previous admission, EMS record, old EKG, old radiological studies, urgent care reports/EKG's, halfway records)? Report findings @ -yes Differential Diagnosis (chest pain, altered mental status, abdominal pain women, abdominal pain men, vaginal bleeding, weakness, fever, dyspnea, syncope, headache, dizziness, GI bleed, back pain, seizure, CVA, palpatations, mental health, musculoskeletal)? @ -prior EKG interpreted by me (3pts min.). @ -yes X-rays interpreted by me (1pt min.). @ -yes CT interpreted by me (1pt min.). @ -no U/S interpreted by me (1pt. min.). @ -no What testing was considered but not performed or refused? (CT, X-rays, U/S, labs)? Why? @ -none What meds were considered but not given or refused? Why? @ -none Did you discuss the management of the patient with other professionals (pr ofessionals i.e. , PA, RED LEADER, lab, RT, psych nurse, sexual assault social worker, utility pipe layer, teacher, immigration services officer, case monitor)? Give summary @ -no Was smoking cessation discussed for >3mins.? @ -no Was critical care preformed (if so, how long)? @ -no Were there social determinants of health that impacted care today? How? (Homelessness, low income, unemployed, alcoholism, drug addiction, transportation, low edu. Level, literacy, decrease access to med. care, retirement, rehab)? @ -none Was there de-escalation of care discussed even if they declined (Discuss DNR or withdrawal of care, Hospice)? DNR status @ -no What co-morbidities impacted this encounter? (DM, HTN, Smoking, COPD, CAD, Cancer, CVA, ARF, Chemo, Hep., AIDS, mental health diagnosis, sleep apnea, morbid obesity)? @ -none Was patient admitted / discharged? Hospital course, mention meds given and route, prescriptions, significant lab abnormalities, going to OR and other pertinent info. @ - 63 male to the emergency department today for evaluation patient presents for evaluation of chest pain. Patient presents with persistent chest pain here in the ER and history of polysubstance abuse. Patient be admitted for chest pain observation Admitted Undiagnosed new problem with uncertain prognosis? @ -no Drug Therapy requiring intensive monitoring for toxicity (Heparin, Nitro, Insulin, Cardizem)? @ -no Were any procedures done? @ -no Diagnosis/symptom? @ -Chest pain Acute, or Chronic, or Acute on Chronic? @ -Acute Uncomplicated (without systemic symptoms) or Complicated (systemic symptoms)? @ -Complicated Side effects of treatment? @ -no Exacerbation, Progression, or Severe Exacerbation? @ -exacerbation Poses a threat to life or bodily function? How? (Chest pain, [place], [place], pneumonia, PE, COPD, DKA, ARF, appy, cholecystitis, CVA, Diverticulitis, Homicidal, Suicidal, threat to staff... and all critical care pts) @ -yes with significant chest pain Reevaluation #5: 05/03/23 01:46 EDT Differential Chest Pain: Stable Angina, Unstable Angina, STEMI, NSTEMI Aortic Dissection, Pneumothorax, Musculoskeletal, Esophageal Spasm GERD, Cholecystitis, Pancreatitis, Zoster, this is not meant to be an all-inclusive list. - Consultations Consultation #1: Spoke with the admitting physicians to admit this patient Chest Pain MDM - MDM 63 male to the emergency department today for evaluation patient presents for evaluation of chest pain. Patient presents with persistent chest pain here in the ER and history of polysubstance abuse. Patient be admitted for chest pain observation Disposition Clinical Impression: COPD exacerbation, Chest pain Disposition: ADMITTED IP TO THIS HOSP Condition: Undetermined Is patient prescribed a controlled substance at d/c from ED?: No Time of Disposition: 01:45
[2023-05-02 23:45] LABS: Basophils # (A) 0.1 k/uL (0-0.2); Basophils % (A) 1 %; Eosinophils # (A) 0.5 k/uL (0-0.7); Eosinophils % (A) 6 %; HGB 12.2 gm/dL (13.0-17.5); Lymphocytes # (A) 2.4 k/uL (1.0-4.8); Lymphocytes % (A) 29 %; MCH 33.1 pg (25.0-35.0); MCHC 33.8 g/dL (31.0-37.0); MCV 97.8 fL (80.0-100.0); Mean Platelet Volume 7.6; Monocytes # (A) 0.6 k/uL (0-1.0); Monocytes % (A) 8 %; Neutrophils # (A) 4.5 k/uL (1.3-7.7); Neutrophils % (A) 55 %; Platelet Count 161 k/uL (150-450); RBC 3.68 m/uL (4.30-5.90); RDW 12.3 % (11.5-15.5); WBC 8.2 k/uL (3.8-10.6)
[2023-05-03] LABS: ALT 32 U/L (4-49); AST 29 U/L (17-59); African American GFR (CKD) 74 (>60 ml/min/1.73 sqM); Albumin 3.8 g/dL (3.5-5.0); Alkaline Phosphatase 57 U/L (38-126); Anion Gap 8 mmol/L; Blood Urea Nitrogen 24 mg/dL (9-20); Carbon Dioxide 29 mmol/L (22-30); Chloride 99 mmol/L (98-107); Glucose 89 mg/dL (74-99); Magnesium 2.1 mg/dL (1.6-2.3); Non-African American GFR(CKD) 64 (>60 ml/min/1.73 sqM); Potassium 4.5 mmol/L (3.5-5.1); Sodium 136 mmol/L (137-145); Total Bilirubin 0.3 mg/dL (0.2-1.3); Total Protein 6.6 g/dL (6.3-8.2)
[2023-05-03 00:08] LABS: NT-Pro-B-Type Natriuretic Pept 300 pg/mL
[2023-05-03 00:44] LABS: Partial Thromboplastin Time 25.1 sec (22.0-30.0); Prothrombin Time 10.7 sec (10.0-12.5)
--- NOTE | 2023-05-03 01:11 | XR ---
EXAM: XR Chest, 1 View CLINICAL HISTORY: XR Reason: cp TECHNIQUE: Frontal view of the chest. COMPARISON: April 22, 2023 FINDINGS: Lungs: The lungs are well-inflated with slight from interstitial markings throughout both lungs consistent with underlying emphysema. No acute focal infiltrate or consolidation is seen. Pleural space: Unremarkable. No pneumothorax. Heart: Borderline cardiomegaly. Mediastinum: Unremarkable. Bones/joints: Unremarkable. Upper abdomen: There is no pneumoperitoneum under the diaphragm. IMPRESSION: The lungs are well-inflated with slight from interstitial markings throughout both lungs consistent with underlying emphysema. No acute focal infiltrate or consolidation is seen.
[2023-05-03 04:03] VITALS: TEMP 96.9
[2023-05-03] MEDS ORDERED: NALOXONE 0.4 MG/ML 1 ML VIAL IV PRN (06:04)
[2023-05-03] MEDS ORDERED: ONDANSETRON 4 MG/2 ML VIAL IVP PRN (06:04)
[2023-05-03] MEDS ORDERED: SODIUM CHLORIDE 0.9% 1,000 ML IV SCH (06:15)
[2023-05-03] MEDS ORDERED: MAG HYDROX/AL HYDROX/SIMETH 30 ML CUP PO PRN (08:43)
[2023-05-03] MEDS ORDERED: NITROGLYCERIN SL TABS 0.4 MG TAB SUBLINGUAL PRN (08:43)
[2023-05-03] MEDS ORDERED: IPRATROPIUM-ALBUTEROL 3 ML NEB INHALATION PRN (08:46)
[2023-05-03] MEDS ORDERED: methylPREDNISolone SOD SUCCI 125 MG/2 ML VIAL IV STA (08:47)
--- NOTE | 2023-05-03 08:57 | P.HPIM ---
History of Present Illness 63-year-old male came in with compensative back pain radiating to the chest patient chest pain appears to be noncardiac [place] scuttle patient has diffuse, somewhat Alcides thoracolumbar degenerative disease causing some radicular sy mptoms in the right foot. Patient any 7/10 in severity. Patient is admitted for chest pain rule out acute current syndromes EKG showed nonspecific ST-T wave changes not significantly different from his previous EKGs. Patient was recently hospitalized and had a stress test a few days ago. Patient does have history of coronary artery disease and had stents 3 years ago. Patient was lightheaded blood pressure is low normal patient is on beta miriam with mild sinus bradycardia and hypotension because of which cutting down the dose of beta miriam. Patient does have prescription drug abuse in the past because of which patient is an [facility] patient did does smoke actively and does have wheezing on exam. REVIEW OF SYSTEMS: CONSTITUTIONAL: No fever, no malaise, no fatigue. HEENT: No recent visual problems or hearing problems. Denied any sore throat. CARDIOVASCULAR: No orthopnea, PND, no palpitations, no syncope. PULMONARY:no cough, no hemoptysis. GASTROINTESTINAL: No diarrhea, no nausea, no vomiting, no abdominal pain. NEUROLOGICAL: No headaches, no weakness, no numbness. HEMATOLOGICAL: Denies any bleeding or petechiae. GENITOURINARY: Denies any burning micturition, frequency, or urgency. MUSCULOSKELETAL/RHEUMATOLOGICAL: As mentioned in HPI ENDOCRINE: Denies any polyuria or polydipsia. The rest of the 14-point review of systems is negative. PHYSICAL EXAMINATION: GENERAL: The patient is alert and oriented x3, not in any acute distress. Well developed, well nourished. HEENT: Pupils are round and equally reacting to light. EOMI. No scleral icterus. No conjunctival pallor. Normocephalic, atraumatic. No pharyngeal erythema. No thyromegaly. CARDIOVASCULAR: S1 and S2 present. No murmurs, rubs, or gallops. PULMONARY: Mild expiratory wheezing on exam ABDOMEN: Soft, nontender, nondistended, normoactive bowel sounds. No palpable organomegaly. MUSCULOSKELETAL: No joint swelling or deformity. EXTREMITIES: No cyanosis, clubbing, or pedal edema. NEUROLOGICAL: Gross neurological examination did not reveal any focal deficits. SKIN: No rashes. Assessment and plan -Back pain/chest pain musculoskeletal patient the chest pain is also reproducible. Patient will be discharged on antiplatelet medications including steroids which will help him with COPD as well had a recent stress test after the second set of troponin probably patient can be discharged. -Coronary artery disease with stents in the past -Musculoskeletal, back pain,: Patient will be discharged on steroids follow-up with the spinal surgeon as an outpatient -COPD with mild acute exenteration patient will be given 1 dose of IV steroids followed by weaning dose of steroids that will also help with inflammation of his back. -History of drug abuse for which patient is on [facility] rehabilitation program Patient will be discharged if second set of troponin is negative Past Medical History Past Medical History: COPD, GI Bleed, Liver Disease, Respiratory Disorder Additional Past Medical History / Comment(s): herniated disks History of Any Multi-Drug Resistant Organisms: None Reported Past Surgical History: Orthopedic Surgery Additional Past Surgical History / Comment(s): r knee surgery. had staph infection. Past Anesthesia/Blood Transfusion Reactions: No Reported Reaction Past Psychological History: No Psychological Hx Reported Past Alcohol Use History: None Reported Past Drug Use History: Cocaine, Opiates - Past Family History Father Family Medical History: Myocardial Infarction ([place]) Mother Additional Family Medical History / Comment(s): had colon resection/copd suspected PE ( from) Medications and Allergies Home Medications Medication Instructions Recorded Confirmed Type Buprenorphine HCl/Naloxone HCl 1 film SUBLINGUAL DAILY 12/24/18 04/22/23 History [Suboxone 8 mg-2 mg Sl Film] Budesonide/Formoterol Fumarate 1 puff INHALATION RT-BID 04/22/23 04/22/23 History [Symbicort 80-4.5 Mcg Inhaler] Divalproex Sodium [Depakote] 500 mg PO BID 04/22/23 04/22/23 History Isosorbide Mononitrate ER [Imdur] 30 mg PO DAILY 04/22/23 04/22/23 History Mag Hydrox/Aluminum Hyd/Simeth 30 ml PO Q4H PRN 04/22/23 04/22/23 History [Mylanta Maximum Strength Liq] Nitroglycerin Sl Tabs [Nitrostat] 0.4 mg SL Q5M PRN 04/22/23 04/22/23 History buPROPion XL [Wellbutrin XL] 150 mg PO DAILY 04/22/23 04/22/23 History traZODone HCL 150 mg PO HS 04/22/23 04/22/23 History Aspirin 81 mg PO DAILY #30 tab 04/24/23 Rx Atorvastatin [Lipitor] 40 mg PO HS #30 tab 04/24/23 Rx Ranolazine [Ranexa] 500 mg PO Q12HR #60 tab 04/24/23 Rx Celecoxib [CeleBREX] 200 mg PO BID #30 cap 05/03/23 Rx Metoprolol Tartrate [Lopressor] 12.5 mg PO BID tab 05/03/23 Rx Omeprazole [PriLOSEC] 40 mg PO AC-BRKFST #14 cap 05/03/23 Rx predniSONE 10 mg PO DAILY #30 tab 05/03/23 Rx Allergies Allergy/AdvReac Type Severity Reaction Status Date / Time morphine Allergy Itching Verified 12/24/18 12:23 Penicillins Allergy Anaphylaxis Verified 05/02/23 23:23 diphenhydramine AdvReac "Passes Verified 05/02/23 23:23 [From Benadryl] Out" Physical Exam Vitals: Vital Signs Temp Pulse Resp BP Pulse Ox 05/03/23 03:49 96.9 F L 53 L 16 103/59 95 05/03/23 00:02 57 L 18 109/61 92 L 05/02/23 23:20 97.6 F 66 16 133/87 96 Intake and Output 05/02/23 05/03/23 05/03/23 23:59 06:59 14:59 Other: Weight Results CBC & Chem 7: 05/02/23 23:27 05/02/23 23:27 Labs: Abnormal Lab Results - Last 24 Hours (Table) 05/02/23 05/02/23 Range/Units 23:27 23:27 RBC 3.68 L (4.30-5.90) m/uL Hgb 12.2 L (13.0-17.5) gm/dL Hct 36.0 L (39.0-53.0) % Sodium 136 L (137-145) mmol/L BUN 24 H (9-20) mg/dL
--- NOTE | 2023-05-03 08:57 | P.DS ---
Providers Date of admission: 05/03/23 06:05 Attending physician: Tomy Otero Consults: 05/03/23 06:04 Consult Physician Routine Consulting Provider: Osmin Flores Consult Reason/Comments: cp Do you want consulting provider notified?: Yes Primary care physician: Stated None Hospital Course: 63-year-old male came in with compensative back pain radiating to the chest patient chest pain appears to be noncardiac [place] scuttle patient has diffuse, somewhat Alcides thoracolumbar degenerative disease causing some radicular symptoms in the right foot. Patient any 7/10 in severity. Patient is admitted for chest pain rule out acute current syndromes EKG showed nonspecific ST-T wave changes not significantly different from his previous EKGs. Patient was recently hospitalized and had a stress test a few days ago. Patient does have history of coronary artery disease and had stents 3 years ago. Patient was lightheaded blood pressure is low normal patient is on beta miriam with mild sinus bradycardia and hypotension because of which cutting down the dose of beta miriam. Patient does have prescription drug abuse in the past because of which patient is an [place] [facility] patient did does smoke actively and does have wheezing on exam. PHYSICAL EXAMINATION: GENERAL: The patient is alert and oriented x3, not in any acute distress. Well developed, well nourished. HEENT: Pupils are round and equally reacting to light. EOMI. No scleral icterus. No conjunctival pallor. Normocephalic, atraumatic. No pharyngeal erythema. No thyromegaly. CARDIOVASCULAR: S1 and S2 present. No murmurs, rubs, or gallops. PULMONARY: Mild expiratory wheezing on exam ABDOMEN: Soft, nontender, nondistended, normoactive bowel sounds. No palpable organomegaly. MUSCULOSKELETAL: No joint swelling or deformity. EXTREMITIES: No cyanosis, clubbing, or pedal edema. NEUROLOGICAL: Gross neurological examination did not reveal any focal deficits. SKIN: No rashes. Assessment and plan -Back pain/chest pain musculoskeletal patient the chest pain is also reproducible. Patient will be discharged on antiplatelet medications including steroids which will help him with COPD as well had a recent stress test after the second set of troponin probably patient can be discharged. -Coronary artery disease with stents in the past -Musculoskeletal, back pain,: Patient will be discharged on steroids follow-up with the spinal surgeon as an outpatient -COPD with mild acute exenteration patient will be given 1 dose of IV steroids followed by weaning dose of steroids that will also help with inflammation of his back. -History of drug abuse for which patient is on [place] [facility] Patient will be discharged if second set of troponin is negative Patient Condition at Discharge: Undetermined Plan - Discharge Summary New Discharge Prescriptions: New Celecoxib [CeleBREX] 200 mg PO BID #30 cap Omeprazole [PriLOSEC] 40 mg PO AC-BRKFST #14 cap Metoprolol Tartrate [Lopressor] 12.5 mg PO BID tab predniSONE 10 mg PO DAILY #30 tab Continue Buprenorphine HCl/Naloxone HCl [Suboxone 8 mg-2 mg Sl Film] 1 film SUBLINGUAL DAILY Budesonide/Formoterol Fumarate [Symbicort 80-4.5 Mcg Inhaler] 1 puff INHALATION RT-BID buPROPion XL [Wellbutrin XL] 150 mg PO DAILY Mag Hydrox/Aluminum Hyd/Simeth [Mylanta Maximum Strength Liq] 30 ml PO Q4H PRN PRN Reason: Gi Upset Ranolazine [Ranexa] 500 mg PO Q12HR #60 tab traZODone HCL 150 mg PO HS Nitroglycerin Sl Tabs [Nitrostat] 0.4 mg SL Q5M PRN PRN Reason: Chest Pain Isosorbide Mononitrate ER [Imdur] 30 mg PO DAILY Divalproex Sodium [Depakote] 500 mg PO BID Aspirin 81 mg PO DAILY #30 tab Atorvastatin [Lipitor] 40 mg PO HS #30 tab Discontinued Metoprolol Tartrate [Lopressor] 25 mg PO BID Discharge Medication List Buprenorphine HCl/Naloxone HCl [Suboxone 8 mg-2 mg Sl Film] 1 film SUBLINGUAL DAILY 12/24/18 [History] Budesonide/Formoterol Fumarate [Symbicort 80-4.5 Mcg Inhaler] 1 puff INHALATION RT-BID 04/22/23 [History] Divalproex Sodium [Depakote] 500 mg PO BID 04/22/23 [History] Isosorbide Mononitrate ER [Imdur] 30 mg PO DAILY 04/22/23 [History] Mag Hydrox/Aluminum Hyd/Simeth [Mylanta Maximum Strength Liq] 30 ml PO Q4H PRN 04/22/23 [History] Nitroglycerin Sl Tabs [Nitrostat] 0.4 mg SL Q5M PRN 04/22/23 [History] buPROPion XL [Wellbutrin XL] 150 mg PO DAILY 04/22/23 [History] traZODone HCL 150 mg PO HS 04/22/23 [History] Aspirin 81 mg PO DAILY #30 tab 04/24/23 [Rx] Atorvastatin [Lipitor] 40 mg PO HS #30 tab 04/24/23 [Rx] Ranolazine [Ranexa] 500 mg PO Q12HR #60 tab 04/24/23 [Rx] Celecoxib [CeleBREX] 200 mg PO BID #30 cap 05/03/23 [Rx] Metoprolol Tartrate [Lopressor] 12.5 mg PO BID tab 05/03/23 [Rx] Omeprazole [PriLOSEC] 40 mg PO AC-BRKFST #14 cap 05/03/23 [Rx] predniSONE 10 mg PO DAILY #30 tab 05/03/23 [Rx] Follow up Appointment(s)/Referral(s): Genesis Montejo DO [Doctor of Osteopathic Medicine] - 1 Week Lucien Bobo MD [STAFF PHYSICIAN] - 1 Week Discharge Disposition: HOME SELF-CARE
[2023-05-03] MEDS ORDERED: ISOSORBIDE MONONITRATE ER 30 MG TAB.ER.24H PO SCH (09:00)
[2023-05-03] MEDS ORDERED: METOPROLOL TARTRATE 25 MG TAB PO SCH (09:00)
[2023-05-03] MEDS ORDERED: buPROPion XL 150 MG TAB.ER.24H PO SCH (09:00)
[2023-05-03] MEDS ORDERED: NON FORMULARY DRUG (Buprenorphine Hcl/Naloxone Hcl [Suboxone 8 Mg-2 Mg Sl Film] 1 EACH Fil SUBLINGUAL SCH (09:00)
[2023-05-03] MEDS ORDERED: METOPROLOL TARTRATE 12.5 MG TAB PO SCH (09:00)
[2023-05-03] MEDS ORDERED: ASPIRIN 81 MG PO SCH (09:00)
[2023-05-03] MEDS ORDERED: RANOLAZINE 500 MG TAB.ER.12H PO SCH (09:00)
[2023-05-03] MEDS ORDERED: DIVALPROEX 500 MG TABLET.DR PO SCH (09:00)
[2023-05-03 09:36] VITALS: BP 126/98; PULSE 79; RESP 18
[2023-05-03] MEDS ORDERED: SYMBICORT 80-4.5 MCG INHALER INHALATION SCH (20:00)
[2023-05-03] MEDS ORDERED: traZODone HCL 50 MG TAB PO SCH (21:00)
[2023-05-03] MEDS ORDERED: ATORVASTATIN 40 MG TAB PO SCH (21:00)
== END 2023-05-03 09:50 | disposition home or self-care (01) ==
LOC: EC 23:16 → 6NMEDSUR 05-03 06:05
PROVIDERS: ADMIT Hospitalist; ATTEND Hospitalist
DX: J44.1 Chronic obstructive pulmonary disease with (acute) exacerbation (principal); M54.9 Dorsalgia, unspecified; I25.10 Atherosclerotic heart disease of native coronary artery without angina pectoris; F19.11 Other psychoactive substance abuse, in remission; Z95.5 Presence of coronary angioplasty implant and graft; Z79.51 Long term (current) use of inhaled steroids; Z79.899 Other long term (current) drug therapy; Z79.82 Long term (current) use of aspirin; Z79.1 Long term (current) use of non-steroidal anti-inflammatories (NSAID); Z79.52 Long term (current) use of systemic steroids; Z88.0 Allergy status to penicillin; Z88.5 Allergy status to narcotic agent; Z82.49 Family history of ischemic heart disease and other diseases of the circulatory system
CPT/HCPCS: 96374; 99285; 36415; 93005; 83880; 80053; 83605; 83735; 84484 ×2; 85025; 85610; 85730; 71045; G0378; J2930